=== PATIENT | male | born 1955 | race Caucasian/White ===

== ENCOUNTER → 2020-02-03 13:15 | Outpatient (BNVA) | payer MEDICARE, SELFPAY | PROVIDERS: Family Provider Family Medicine; Referring Provider Family Medicine; Visit Provider Podiatrist Foot & Ankle Surgery | DX: M20.41 Other hammer toe(s) (acquired), right foot (principal); M21.611 Bunion of right foot | CPT/HCPCS: 73630 ==

== ENCOUNTER 2021-02-10 12:00 | Outpatient (CLI) | payer MEDICARE, SELFPAY | END 2021-02-10 12:01 | disposition home or self-care (01) | LOC: SLEEP 02-18 10:04 | PROVIDERS: Family Provider Family Medicine; Visit Provider Internal Medicine | DX: G47.10 Hypersomnia, unspecified (principal); J44.9 Chronic obstructive pulmonary disease, unspecified | CPT/HCPCS: G0399 ==

== ENCOUNTER 2023-11-12 15:31 | Outpatient (CLI) | payer MEDICARE, SELFPAY ==
--- NOTE | 2023-11-12 15:42 | XRR_ITS ---
PROCEDURE INFORMATION: Exam: XR Chest Exam date and time: 11/12/2023 3:57 PM Age: 68 years old Clinical indication: Cough TECHNIQUE: Imaging protocol: Radiologic exam of the chest. Views: 2 views. COMPARISON: CR XR chest 2V* [id number] 01/07/2018 3:25 PM FINDINGS: Lungs: Unremarkable. No consolidation. Pleural spaces: Unremarkable. No pleural effusion. No pneumothorax. Heart/Mediastinum: Unremarkable. No cardiomegaly. Bones/joints: Deformity from healed right rib fracture. XR/XR chest 2V* [id number] IMPRESSION: No acute findings.
== END 2023-11-12 15:32 | disposition home or self-care (01) ==
LOC: RAD 15:34
PROVIDERS: Family Provider Family Medicine; PCP Family Medicine; Visit Provider Family Medicine
DX: R05.9 Cough, unspecified (principal)
CPT/HCPCS: 71046

== ENCOUNTER 2024-11-26 04:41 | Observation (INO) | payer MEDICARE, SELFPAY ==
[2024-11-26] VITALS (42 sets, daily range): BP systolic 115–190; BP diastolic 67–120; PULSE 58–156; RESP 16–26; TEMP 36.7; O2SAT 92–100
--- NOTE | 2024-11-26 05:07 | XRR_ITS ---
PROCEDURE INFORMATION: Exam: XR Chest Exam date and time: 11/26/2024 5:24 AM Age: 69 years old Clinical indication: Shortness of breath; Additional info: Hypertension TECHNIQUE: Imaging protocol: Radiologic exam of the chest. Views: 1 view. COMPARISON: CR XR chest 2V* [id number] 11/12/2023 3:57 PM FINDINGS: Lungs: Unremarkable. No consolidation. Pleural spaces: Unremarkable. No pleural effusion. No pneumothorax. Heart/Mediastinum: Unremarkable. No cardiomegaly. Diaphragm: Minimal blunting of the left CP angle, a tiny effusion may be present. Bones/joints: Unremarkable. XR/XR chest 1V portable [id number] IMPRESSION: No acute abnormality.
--- NOTE | 2024-11-26 05:08 | ED_ITS ---
Documented by User: Derrell Hernandez DO 11/26/24 18:20 HPI - Weakness 2 General: Chief complaint: Weakness Stated complaint: Bleching\Weak Time Seen by Provider: 11/26/24 04:58 Source: family Mode of arrival: other (Private vehicle) Limitations: altered mental status History of Present Illness: Patient arrived via private vehicle with with complaints of weakness and burping. Patient does have dementia and is unable to provide any detailed history. says that he was burping all night long and finally set up at the end of the bed and said he just feels bad and wanted to go to the hospital so she brought him over here for further evaluation. Review of Systems 2 General: Reports: ROS unobtainable due to mental status PFSH ED 2 PFSH: Medical History Type 2 diabetes mellitus GERD (gastroesophageal reflux disease) Social History Smoking and tobacco/nicotine status: former use of tobacco/nicotine Alcohol intake: former Substance/Drug Use: never Current occupational status: retired Physical Exam 2 Const: COMMON NORMALS: no acute distress, average body habitus, healthy appearing, alert and well nourished HENMT: COMMON NORMALS: normocephalic, atraumatic, hearing grossly normal bilaterally, external ears normal, Normal external nose present and moist oral mucous membranes HEAD & SCALP: normocephalic and atraumatic NOSE: Normal external nose present EXTERNAL EAR: Yes external ears normal Eye: COMMON NORMALS: Equal, round and reactive pupils present, EOMs intact bilaterally, conjunctivae normal and no scleral icterus CONJUNCTIVA: Yes conjunctivae normal PUPIL: Yes Equal, round and reactive pupils present Neck/C-Spine: COMMON NORMALS: no JVD Chest: COMMONS NORMALS: normal inspection of the chest and normal palpation of entire chest wall Resp: COMMON NORMALS: normal respiratory effort, No retractions, No use of accessory muscles and clear to auscultation bilaterally AUSCULTATION: clear to auscultation bilaterally Cardio: COMMON NORMALS: no JVD, regular rate, regular rhythm, S1 normal heart sound present, S2 normal heart sound present, No gallops present (Cardio), No clicks present (Cardio), No murmurs present (Cardio) and No rub (Cardio) R ATE: regular rate RHYTHM: regular rhythm HEART SOUNDS: S1 normal heart sound present and S2 normal heart sound present GI: COMMON NORMALS: Normal to inspection, nondistended, normoactive bowel sounds present, Soft to palpation, non-tender, No hepatosplenomegaly present and no masses PALPATION: Yes Soft to palpation and Yes No hepatosplenomegaly present Neuro: SENSORIUM/ORIENTATION: Yes alert Course 2 Vital Signs: Vital signs: Vital Signs Temperature 98.0 F 11/29/24 16:41 Pulse Rate 60 11/29/24 16:41 Respiratory Rate 14 11/29/24 16:41 Blood Pressure 142/84 11/29/24 16:41 Pulse Oximetry 96 11/29/24 16:41 Oxygen Delivery Me thod Room Air 11/29/24 11:57 MDM - Weakness Medical Decision Making Care transferred over Dr. Jay at shift change Medical Records I reviewed the patient's medical records. Lab Data I reviewed the patient's lab results. 11/29/24 05:07 11/29/24 05:07 Radiology Impressions Chest X-Ray 11/26/24 05:07 IMPRESSION: No acute abnormality. Abdomen/Pelvis CT 11/26/24 09:18 IMPRESSION: 1. 3 mm bladder stone 2. Intraluminal bladder air may signify UTI 3. Prostate enlargement 4. Constipation 5. Emphysematous changes involving both lung bases 6. Hiatal hernia Head MRI 11/27/24 10:23 IMPRESSION: 1. Normal diffusion imaging. No acute infarct. 2. Study terminated early due to patient agitation. 3. Moderate atrophy. Small vessel disease is more difficult to quantify due to motion. 4. No ventriculomegaly. 5. Mild bilateral hippocampal atrophy. Laboratory Results WBC 9.15 10^3/uL (3.29-11.43) 11/26/24 06:32 RBC 5.12 10^6/uL (3.85-5.65) 11/26/24 06:32 Hgb 14.90 g/dL (11.27-16.99) 11/26/24 06:32 Hct 46.0 % (37-53) 11/26/24 06:32 MCV 89.8 fl (82-101) 11/26/24 06:32 MCH 29.1 pg (27-33) 11/26/24 06:32 MCHC 32.4 g/dL (30-55) 11/26/24 06:32 RDW 14.1 % (12.1-15.1) 11/26/24 06:32 Plt Count 219 10^3/cmm (157-399) 11/26/24 06:32 MPV 9.7 fL (7.4-10.4) 11/26/24 06:32 Neut % (Auto) 66.3 % 11/26/24 06:32 Lymph % (Auto) 21.9 % 11/26/24 06:32 Calvert % (Auto) 8.4 % 11/26/24 06:32 Eos % (Auto) 2.3 % 11/26/24 06:32 Baso % (Auto) 0.8 % 11/26/24 06:32 Neut # (Auto) 6.07 10^3/uL (1.8-7.7) 11/26/24 06:32 Lymph # (Auto) 2.0 10^3/uL (0.8-4.8) 11/26/24 06:32 [place]vert # (Auto) 0.8 10^3/uL (0.2-0.9) 11/26/24 06:32 Eos # (Auto) 0.2 10^3/uL (0.0-0.8) 11/26/24 06:32 Baso # (Auto) 0.1 10^3/uL (0.0-0.1) 11/26/24 06:32 Nucleated RBC % (auto) 0 % 11/26/24 06:32 Nucleated RBCs # 0.0 /100WBC 11/26/24 06:32 Sodium 141 mmol/L (136-145) 11/26/24 06:32 Potassium 4.0 mmol/L (3.5-5.1) 11/26/24 06:32 Chloride 106 mmol/L (98-107) 11/26/24 06:32 Carbon Dioxide 24 mmol/L (22-29) 11/26/24 06:32 Anion Gap 15.0 (5-19) 11/26/24 06:32 BUN 24 mg/dL (8-23) H 11/26/24 06:32 Creatinine 0.9 mg/dL (0.7-1.2) 11/26/24 06:32 GFR Calculation Not Reportable 11/26/24 06:32 Glucose 140 mg/dL (65-115) H 11/26/24 06:32 Calculated Osmolality 298 mOsm/kg (285-295) H 11/26/24 06:32 Calcium 9.6 mg/dL (8.5-10.5) 11/26/24 06:32 Total Bilirubin 0.4 mg/dL (0.15-1.2) 11/26/24 06:32 AST 10 U/L (0-40) 11/26/24 06:32 ALT 13 U/L (0-41) 11/26/24 06:32 Alkaline Phosphatase 79 U/L (40-130) 11/26/24 06:32 Troponin T Baseline 12 ng/L (0-15) 11/26/24 06:32 Troponin T 120 Minute 12.76 ng/L (0-15) 11/26/24 10:05 Delta Troponin T 0.76 ABS# (0-10) 11/26/24 10:05 Troponin T Hi Sens 6Hr 14.65 ng/L (0-15) 11/26/24 12:31 Troponin T Hi Sens 6Hr Delta 2.65 ng/L (0-12) 11/26/24 12:31 Total Protein 6.3 g/dL (6.6-8.7) L 11/26/24 06:32 Albumin 4.0 g/dL (3.5-5.2) 11/26/24 06:32 Globulin 2.3 g/dL (1.3-4.6) 11/26/24 06:32 Vitamin B12 269 pg/mL (232-1245) 11/26/24 12:31 Procalcitonin 0.06 ng/mL (0-0.5) 11/26/24 10:05 TSH 1.75 uIU/mL (0.27-4.20) 11/26/24 10:05 Urine Color Yellow (Yellow) 11/26/24 07:26 Urine Appearance Cloudy (CLEAR) A 11/26/24 07:26 Urine pH 5.0 (5-7) 11/26/24 07:26 Ur Specific [place] 1.040 (1.005-1.030) H 11/26/24 07:26 Urine Protein Negative (Negative) 11/26/24 07:26 Urine Glucose (UA) 3+ (Normal) H 11/26/24 07:26 Urine Ketones Trace (Negative) 11/26/24 07:26 Urine Blood 2+ (Negative) A 11/26/24 07:26 Urine Nitrate Negative (Negative) 11/26/24 07:26 Urine Bilirubin Negative (Negative) 11/26/24 07:26 Urine Urobilinogen 0.2 mg/dL (Negative) 11/26/24 07:26 Ur Leukocyte Esterase Negative (Negative) 11/26/24 07:26 Urine RBC 25-40 /hpf (0-2) H 11/26/24 07:26 Urine WBC 5-10 /hpf (0-5) H 11/26/24 07:26 Ur Squamous Epith Cells 0-4 /hpf (0-5) H 11/26/24 07:26 Amorphous Sediment Not Reportable 11/26/24 07:26 Urine Bacteria 4+ /hpf (NONE) H 11/26/24 07:26 Hyaline Casts 0-4 /lpf H 11/26/24 07:26 Urine Yeast 2+ /hpf H 11/26/24 07:26 All radiology interpretation(s) finalized by discharge Discharge Plan Discharge Patient Disposition: Admitted As Inpatient Admit Provider: Destinee Romero Clinical Impression: Cystitis, Acute urinary retention, Dementia, Behavioral problem Condition: Stable Discharge Diet: Diabetic Discharge Activity: Resume usual activity Sign Out Sign Out Data: Patient Sign Out occurred on 11/26/24 at 06:18. Patient's care was discussed, and care was transferred from Derrell Hernandez DO to Misael Jay DO. Coding Level of Care Code ED Loan Broker for Chg Fwd Related Data Home Medications Medication Instructions Recorded Confirmed empagliflozin 10 mg tablet 20 mg PO QAM 11/26/24 11/26/24 (Jardiance) famotidine 20 mg tablet 20 mg PO QAM 11/26/24 11/26/24 lorazepam 0.5 mg tablet 0.5 mg PO Q8H PRN agitation, panic 11/26/24 11/26/24 attacks, withdrawal medroxyprogesterone 5 mg tablet 5 mg PO BID 11/26/24 11/26/24 melatonin 10 mg tablet 10 mg PO QPM 11/26/24 11/26/24 metformin 500 mg tablet,extended 500 mg PO QAM 11/26/24 11/26/24 release 24 hr nicotine 21 mg/24 hr daily 1 patch transdermal DAILY 11/26/24 11/26/24 transdermal patch quetiapine 25 mg tablet 25 mg PO BEDTIME 11/26/24 11/26/24 semaglutide 7 mg tablet (Rybelsus) 7 mg PO QAM 11/26/24 11/26/24 terazosin 10 mg capsule 10 mg PO QPM 11/26/24 11/26/24 Previous Rx's Medication Instructions Recorded fluconazole 100 mg tablet 100 mg PO DAILY 5 days #5 tabs 11/29/24 olanzapine 5 mg tablet 5 mg PO BID #60 tabs 11/29/24 valproic acid (as sodium salt) 250 250 mg (5 mL) PO QID 30 days #600 11/29/24 mg/5 mL (5 mL) oral solution mL cephalexin 500 mg capsule 500 mg PO BID 5 days #10 caps 12/02/24 Allergies Allergy/AdvReac Type Severity Reaction Status Date / Time benzocaine Allergy ALGY-Bliste Verified 12/02/24 19:52 r Documented by User: Misael Jay DO 12/03/24 09:13 HPI - Weakness 2 General: Chief complaint: Weakness Stated complaint: Bleching\Weak Time Seen by Provider: 11/26/24 04:58 PFSH ED 2 PFSH: Medical History Type 2 diabetes mellitus GERD (gastroesophageal reflux disease) Social History Smoking and tobacco/nicotine status: former use of tobacco/nicotine Alcohol intake: former Substance/Drug Use: never Current occupational status: retired Course 2 Vital Signs: Vital signs: Vital Signs Temperature 98.0 F 11/29/24 16:41 Pulse Rate 60 11/29/24 16:41 Respiratory Rate 14 11/29/24 16:41 Blood Pressure 142/84 11/29/24 16:41 Pulse Oximetry 96 11/29/24 16:41 Oxygen Delivery Me thod Room Air 11/29/24 11:57 MDM - Weakness Medical Decision Making Care transferred over Dr. Jay at shift change Care assumed at change of shift. Patient is urinary retention dementia cystitis. These medical issues need to be addressed will consult psychiatry while on the medical floor. Potentially will need transfer to geriatric psych once medical issues are resolved. Lab Data 11/29/24 05:07 11/29/24 05:07 Radiology Impressions Chest X-Ray 11/26/24 05:07 IMPRESSION: No acute abnormality. Abdomen/Pelvis CT 11/26/24 09:18 IMPRESSION: 1. 3 mm bladder stone 2. Intraluminal bladder air may signify UTI 3. Prostate enlargement 4. Constipation 5. Emphysematous changes involving both lung bases 6. Hiatal hernia Head MRI 11/27/24 10:23 IMPRESSION: 1. Normal diffusion imaging. No acute infarct. 2. Study terminated early due to patient agitation. 3. Moderate atrophy. Small vessel disease is more difficult to quantify due to motion. 4. No ventriculomegaly. 5. Mild bilateral hippocampal atrophy. Laboratory Results WBC 9.15 10^3/uL (3.29-11.43) 11/26/24 06:32 RBC 5.12 10^6/uL (3.85-5.65) 11/26/24 06:32 Hgb 14.90 g/dL (11.27-16.99) 11/26/24 06:32 Hct 46.0 % (37-53) 11/26/24 06:32 MCV 89.8 fl (82-101) 11/26/24 06:32 MCH 29.1 pg (27-33) 11/26/24 06:32 MCHC 32.4 g/dL (30-55) 11/26/24 06:32 RDW 14.1 % (12.1-15.1) 11/26/24 06:32 Plt Count 219 10^3/cmm (157-399) 11/26/24 06:32 MPV 9.7 fL (7.4-10.4) 11/26/24 06:32 Neut % (Auto) 66.3 % 11/26/24 06:32 Lymph % (Auto) 21.9 % 11/26/24 06:32 Calvert % (Auto) 8.4 % 11/26/24 06:32 Eos % (Auto) 2.3 % 11/26/24 06:32 Baso % (Auto) 0.8 % 11/26/24 06:32 Neut # (Auto) 6.07 10^3/uL (1.8-7.7) 11/26/24 06:32 Lymph # (Auto) 2.0 10^3/uL (0.8-4.8) 11/26/24 06:32 [place]vert # (Auto) 0.8 10^3/uL (0.2-0.9) 11/26/24 06:32 Eos # (Auto) 0.2 10^3/uL (0.0-0.8) 11/26/24 06:32 Baso # (Auto) 0.1 10^3/uL (0.0-0.1) 11/26/24 06:32 Nucleated RBC % (auto) 0 % 11/26/24 06:32 Nucleated RBCs # 0.0 /100WBC 11/26/24 06:32 Sodium 141 mmol/L (136-145) 11/26/24 06:32 Potassium 4.0 mmol/L (3.5-5.1) 11/26/24 06:32 Chloride 106 mmol/L (98-107) 11/26/24 06:32 Carbon Dioxide 24 mmol/L (22-29) 11/26/24 06:32 Anion Gap 15.0 (5-19) 11/26/24 06:32 BUN 24 mg/dL (8-23) H 11/26/24 06:32 Creatinine 0.9 mg/dL (0.7-1.2) 11/26/24 06:32 GFR Calculation Not Reportable 11/26/24 06:32 Glucose 140 mg/dL (65-115) H 11/26/24 06:32 Calculated Osmolality 298 mOsm/kg (285-295) H 11/26/24 06:32 Calcium 9.6 mg/dL (8.5-10.5) 11/26/24 06:32 Total Bilirubin 0.4 mg/dL (0.15-1.2) 11/26/24 06:32 AST 10 U/L (0-40) 11/26/24 06:32 ALT 13 U/L (0-41) 11/26/24 06:32 Alkaline Phosphatase 79 U/L (40-130) 11/26/24 06:32 Troponin T Baseline 12 ng/L (0-15) 11/26/24 06:32 Troponin T 120 Minute 12.76 ng/L (0-15) 11/26/24 10:05 Delta Troponin T 0.76 ABS# (0-10) 11/26/24 10:05 Troponin T Hi Sens 6Hr 14.65 ng/L (0-15) 11/26/24 12:31 Troponin T Hi Sens 6Hr Delta 2.65 ng/L (0-12) 11/26/24 12:31 Total Protein 6.3 g/dL (6.6-8.7) L 11/26/24 06:32 Albumin 4.0 g/dL (3.5-5.2) 11/26/24 06:32 Globulin 2.3 g/dL (1.3-4.6) 11/26/24 06:32 Vitamin B12 269 pg/mL (232-1245) 11/26/24 12:31 Procalcitonin 0.06 ng/mL (0-0.5) 11/26/24 10:05 TSH 1.75 uIU/mL (0.27-4.20) 11/26/24 10:05 Urine Color Yellow (Yellow) 11/26/24 07:26 Urine Appearance Cloudy (CLEAR) A 11/26/24 07:26 Urine pH 5.0 (5-7) 11/26/24 07:26 Ur Specific [place] 1.040 (1.005-1.030) H 11/26/24 07:26 Urine Protein Negative (Negative) 11/26/24 07:26 Urine Glucose (UA) 3+ (Normal) H 11/26/24 07:26 Urine Ketones Trace (Negative) 11/26/24 07:26 Urine Blood 2+ (Negative) A 11/26/24 07:26 Urine Nitrate Negative (Negative) 11/26/24 07:26 Urine Bilirubin Negative (Negative) 11/26/24 07:26 Urine Urobilinogen 0.2 mg/dL (Negative) 11/26/24 07:26 Ur Leukocyte Esterase Negative (Negative) 11/26/24 07:26 Urine RBC 25-40 /hpf (0-2) H 11/26/24 07:26 Urine WBC 5-10 /hpf (0-5) H 11/26/24 07:26 Ur Squamous Epith Cells 0-4 /hpf (0-5) H 11/26/24 07:26 Amorphous Sediment Not Reportable 11/26/24 07:26 Urine Bacteria 4+ /hpf (NONE) H 11/26/24 07:26 Hyaline Casts 0-4 /lpf H 11/26/24 07:26 Urine Yeast 2+ /hpf H 11/26/24 07:26 Discharge Plan Discharge Patient Disposition: Admitted As Inpatient Admit Provider: Destinee Romero Clinical Impression: Cystitis, Acute urinary retention, Dementia, Behavioral problem Condition: Stable Discharge Diet: Diabetic Discharge Activity: Resume usual activity Sign Out Sign Out Data: Patient Sign Out occurred on 11/26/24 at 06:18. Patient's care was discussed, and care was transferred from Derrell Hernandez DO to Misael Jay DO. Coding Level of Care Code ED Loan Broker for Chg Fwd Related Data Home Medications Medication Instructions Recorded Confirmed empagliflozin 10 mg tablet 20 mg PO QAM 11/26/24 11/26/24 (Jardiance) famotidine 20 mg tablet 20 mg PO QAM 11/26/24 11/26/24 lorazepam 0.5 mg tablet 0.5 mg PO Q8H PRN agitation, panic 11/26/24 11/26/24 attacks, withdrawal medroxyprogesterone 5 mg tablet 5 mg PO BID 11/26/24 11/26/24 melatonin 10 mg tablet 10 mg PO QPM 11/26/24 11/26/24 metformin 500 mg tablet,extended 500 mg PO QAM 11/26/24 11/26/24 release 24 hr nicotine 21 mg/24 hr daily 1 patch transdermal DAILY 11/26/24 11/26/24 transdermal patch quetiapine 25 mg tablet 25 mg PO BEDTIME 11/26/24 11/26/24 semaglutide 7 mg tablet (Rybelsus) 7 mg PO QAM 11/26/24 11/26/24 terazosin 10 mg capsule 10 mg PO QPM 11/26/24 11/26/24 Previous Rx's Medication Instructions Recorded fluconazole 100 mg tablet 100 mg PO DAILY 5 days #5 tabs 11/29/24 olanzapine 5 mg tablet 5 mg PO BID #60 tabs 11/29/24 valproic acid (as sodium salt) 250 250 mg (5 mL) PO QID 30 days #600 11/29/24 mg/5 mL (5 mL) oral solution mL cephalexin 500 mg capsule 500 mg PO BID 5 days #10 caps 12/02/24 Allergies Allergy/AdvReac Type Severity Reaction Status Date / Time benzocaine Allergy AKASH-Brendan Verified 12/02/24 19:52 r
[2024-11-26 06:38] LABS: Basophils # 0.1 10^3/uL (0.0-0.1); Basophils % 0.8 %; Eosinophils # 0.2 10^3/uL (0.0-0.8); Eosinophils % 2.3 %; Lymphocytes % 21.9 %; Mean Corpuscular HGB Conc 32.4 g/dL (30-55); Mean Corpuscular Hemoglobin 29.1 pg (27-33); Mean Corpuscular Volume 89.8 fl (82-101); Mean Platelet Volume 9.7 fL (7.4-10.4); Monocytes # 0.8 10^3/uL (0.2-0.9); Monocytes % 8.4 %; Neutrophils # 6.07 10^3/uL (1.8-7.7); Neutrophils % 66.3 %; Nucleated Red Blood Cells % 0 %; Platelet Count 219 10^3/cmm (157-399); Red Blood Count 5.12 10^6/uL (3.85-5.65); Red Cell Distribution Width 14.1 % (12.1-15.1); White Blood Count 9.15 10^3/uL (3.29-11.43)
[2024-11-26 06:59] LABS: Alanine Aminotransferase 13 U/L (0-41); Alkaline Phosphatase 79 U/L (40-130); Aspartate Amino Transferase 10 U/L (0-40); Blood Urea Nitrogen 24 mg/dL (8-23); Calcium 9.6 mg/dL (8.5-10.5); Carbon Dioxide 24 mmol/L (22-29); Chloride 106 mmol/L (98-107); Creatinine Clr Calc Pharmacy 89.5752; Globulin 2.3 g/dL (1.3-4.6); Glucose 140 mg/dL (65-115); Osmolality Calculated 298 mOsm/kg (285-295); Sodium 141 mmol/L (136-145); Total Bilirubin 0.4 mg/dL (0.15-1.2); Total Protein 6.3 g/dL (6.6-8.7)
[2024-11-26 07:50] LABS: Troponin(5th) Baseline 12 ng/L (0-15)
[2024-11-26] MEDS: ziprasidone 20 mg/mL SDV 5 MG IM ×4 (07:55→16:30)
[2024-11-26 08:07] LABS: Bilirubin Urine Negative (Negative); Blood Urine 2+ (Negative); Glucose Urine UA 3+ (Normal); Ketones Urine Trace (Negative); Leukocyte Esterase Urine Negative (Negative); Nitrate Urine Negative (Negative); Protein Urine Negative (Negative); Urine Appearance Cloudy (CLEAR); Urine Color Yellow (Yellow); Urobilinogen Urine 0.2 mg/dL (Negative)
--- NOTE | 2024-11-26 08:08 | PC.NURSE ---
AT 0750 PATIENT TO NURSES STATION AND STATES PATIENT BECOMING AGITATED, NURSE CARLEE AND PHYSICIAN ELLEN TO ROOM WHERE PATIENT IS FOUND OUT OF BED. PATIENT AGGRESSIVE TOWARDS STAFF AND PHYSICIAN. ASKED TO LEAVE ROOM STAFF HANDLES PATIENTS WITH DEMENTIA AND AGGRESSION FREQUENTLY AND DO NOT WANT HER TO BECOME INJURED. PATIENT BEGAN SWINGING TOWARDS STAFF. PATIENT PLACED BACK IN BED, SECURITY NOTIFIED. PATIENT CONTINUES TO KICK AT STAFF. PHYSICIAN ORDERED 5 MG GEODON AT 0755 TO HELP DEESCALATE PATIENT. PATIENT CONTINUES TO BECOME AGGRESSIVE AND ATTEMPTING TO HIT STAFF MEMBERS. PATIENT ORDERED ANOTHER 5 MG GEODON AT 0805. PATIENT GIVEN 1 SHOT GEODON TO LEFT DELTOID, 2ND SHOT TO RIGHT LEG. AT 0815 PATIENT CONTINUES TO SAY THAT HE CANNOT BREATHE. PHYSICIAN AT BEDSIDE CONTINUES TO HELP PATIENT AND MONITOR. PATIENT CONNECTED TO PULSE OX WHERE HE REMAINS 96% ON RA AND HR 151. AT 0824 STAFF STILL AT BEDSIDE. PATIENT STATES THAT HE CANNOT BREATHE AND CONTINUES TO CALL OUT FOR VAULT MECHANIC BECAUSE I'M NOT HURTING ANYONE, YOU ARE. PATIENT 96% ON RA, AND HR 150. AT 0832 STAFF STILL AT BEDSIDE, ELLEN LEFT THE ROOM, REPLACED BY CR WOODS. PATIENT 96% ON RA AND HR 138. AT 0842 STAFF STILL AT BEDSIDE, HOLDING ARMS AND LEGS. 94% ON RA, HR 126. 1 MG ATIVAN ORDERED, GIVEN TO RIGHT LEG. PATIENT PLACED IN TWO POINT SOFT RESTRAINT AT 0851 PER ELLEN. BOTH WRISTS RESTRAINED.
[2024-11-26 08:10] LABS: Add Urine Microscopic? YES
[2024-11-26 08:29] LABS: UA Manual Slide Review YES; UA Slide Review UA Slide Review Perf
[2024-11-26 08:30] LABS: Add Urine Culture? Yes; Bacteria Urine 4+ /hpf; Hyaline Casts Urine 0-4 /lpf; RBC Urine 25-40 /hpf (0-2); Squamous Epithelial Cell Urine 0-4 /hpf (0-5)
[2024-11-26] MEDS: LORazepam 2 mg/mL INJ 1 mL 1 MG IM ×2 (08:44→09:47)
--- NOTE | 2024-11-26 08:58 | PC.NURSE ---
WASTED 1 MG ATIVAN AND 10 MG GEODON WITH SAE BEJARANO.
--- NOTE | 2024-11-26 09:14 | PC.NURSE ---
came to nurses station and alerted staff that pt was getting agitated and wanted to leave. pt has a hx of dementia w episodes of aggression. when this RN arrived to room, pt was making an attempt to elope, this RN attempted to redirect pt back into bed as the physician arrived the pt made multiple swings at staff as well as kicking staff. pt made multiple attempts to get out of bed and had to be held down by staff until provider ordered soft restraints. restraints applied by staff, extremities are pink and warm after application.
--- NOTE | 2024-11-26 09:17 | PC.NURSE ---
AT 0915 PATIENT CONTINUES TO SWING HANDS AND KICK FEET. PATIENT CONTINUES TO BE IN RESTRAINTS. 1:1 SITTER PRESENT, PATIENT CONNECTED TO VITALS MONITORING.
--- NOTE | 2024-11-26 09:18 | CTR_ITS ---
PROCEDURE INFORMATION: Exam: CT Abdomen And Pelvis Without Contrast Exam date and time: 11/26/2024 1:26 PM Age: 69 years old Clinical indication: Other: UTI; Additional info: Flank pain TECHNIQUE: Imaging protocol: Computed tomography of the abdomen and pelvis without contrast. Radiation optimization: All CT scans at this facility use at least one of these dose optimization techniques: automated exposure control; mA and/or kV adjustment per patient size (includes targeted exams where dose is matched to clinical indication); or iterative reconstruction. COMPARISON: CR (CHEST, ) 11/26/2024 5:24 AM RADIATION DOSE METRICS: Total DLP (mGy-cm): 499.43 FINDINGS: Lungs: Both lung bases demonstrate emphysematous changes. Diaphragm: A hiatal hernia is noted in the lower mediastinum. Liver: Normal. No mass. Gallbladder and biliary ducts: Normal. No calcified stones. No ductal dilation. Pancreas: Normal. No ductal dilation. Spleen: Normal. No splenomegaly. Adrenal glands: Normal. No mass. Kidneys and ureters: Normal. No hydronephrosis. Stomach and bowel: There is a moderate amount of stool noted throughout the colon. No bowel distension. Appendix: No evidence of appendicitis. Intraperitoneal space: Unremarkable. No free air. No significant fluid collection. Vasculature: Unremarkable. No abdominal aortic aneurysm. Lymph nodes: Unremarkable. No enlarged lymph nodes. Urinary bladder: There is a 3 mm stone located in the lumen of the bladder. A tiny air bubble is also noted in the lumen of the bladder. Reproductive: The prostate gland is abnormally enlarged. Bones/joints: Unremarkable. No acute fracture. Soft tissues: Unremarkable. CT/CT kidney stone [id number] IMPRESSION: 1. 3 mm bladder stone 2. Intraluminal bladder air may signify UTI 3. Prostate enlargement 4. Constipation 5. Emphysematous changes involving both lung bases 6. Hiatal hernia
--- NOTE | 2024-11-26 09:25 | ECG_ITS ---
[facility] Test Date: 2024-11-26 Pat Name: Placido Stauffer Department: Room: Gender: Male Metal Fabricator: : 1955 Requested By: Misael Pizarro Order Number: [id number] Lorrie MD: Devyn Buenrostro M.D. Measurements Intervals [place] Rate: 93 P: 73 GA: 176 QRS: 21 QRSD: 102 T: 66 QT: 368 QTc: 458 Interpretive Statements SINUS RHYTHM No previous ECG available for comparison Electronically Signed On 11-27-2024 12:35:15 NAVY MATERIAL INSPECTOR by Devyn Buenrostro M.D. [id number]
--- NOTE | 2024-11-26 09:42 | PC.PHAR ---
provided new updated medication list from [facility].
[2024-11-26 10:29] LABS: Troponin 5 2HR 12.76 ng/L (0-15); Troponin 5 2HR Delta 0.76 ABS# (0-10)
[2024-11-26] MEDS: OLANZapine 10 mg ODT PO (10:41)
[2024-11-26 12:56] LABS: Troponin 5 6HR 14.65 ng/L (0-15); Troponin 5 6HR Delta 2.65 ng/L (0-12)
--- NOTE | 2024-11-26 13:25 | ECG_ITS ---
[facility]: 2024-11-26 Pat Name: Placido Stauffer Department: Room: Gender: Male Globe Tester: : 1955 Requested By: Misael Pizarro Order Number: [id number] Lorrie MD: Devyn Buenrostro M.D. Measurements Intervals [place] Rate: 111 P: 75 [place]: 140 QRS: 37 QRSD: 127 T: 70 QT: 327 QTc: 446 Interpretive Statements SINUS TACHYCARDIA MODERATE INTRAVENTRICULAR CONDUCTION DELAY [110+ ms QRS DURATION] Compared to ECG 11/26/2024 11:29:24 Intraventricular conduction delay now present Sinus rhythm no longer present Electronically Signed On 11-27-2024 12:34:46 ARC WELDING MACHINE OPERATOR by Devyn Buenrostro M.D. [id number]
[2024-11-26] MEDS: cefTRIAXone 1,000 mg SDV 1000 MG IVP (16:41)
--- NOTE | 2024-11-26 16:46 | PC.NURSE ---
came to nurses station to inform this RN that pt was starting to get agitated again. provider ordered medication. meds administered. pt began to kick and attempted to pull out linda. milady harmon obtained mitts for pt to detour him from pulling his linda. more medication administered. then the pt attempted to bite this RN. pt states 'im not hurting anyone, you are!' iv inserted per providers orders and abx were administered. 10mg of geodon wasted with SAE Mccracken.
[2024-11-26 17:50] LABS: Procalcitonin 0.06 ng/mL (0-0.5); Thyroid Stimulating Hormone 1.75 uIU/mL (0.27-4.20)
[2024-11-26 18:45] LABS: Lactic Sepsis W/Reflex 1.4 mmol/L (0.5-2.2)
[2024-11-26] MEDS: sodium chloride 0.9% 1,000 ML 75 ML IV (18:59)
[2024-11-26] MEDS: docusate sodium 100 mg Capsule PO (19:00)
--- NOTE | 2024-11-26 19:03 | P.HP_ITS ---
Providers/Chief Complaint 2 Primary Care Provider: Piedad Steinberg DO Chief Complaint: Belching\Weak History of Present Illness Placido Stauffer is a 69 year old male with history of dementia, has had 2 admissions to neuropsychiatric unit at [facility] for suicidal ideation, his guns have been taken away by the family, brought in by his because they are not able to take care of him patient has been very aggressive, he has tried multiple times to punch his , is requesting [facility] placement and prefers [place]. Patient was retaining urine Armenta catheter was placed which showed significant amount of urine, patient is dehydrated, concentrated urine, as per the patient was belching and asked her to take him to the hospital today. Patient is able to tell me his date of , he is not sure where he is at this point but stating name of the town he lives in. At this point he is verbally redirectable, I have given him grape juice, he only took 3 sips. Workup in the ER revealed normal CBC, he is afebrile hemodynamically stable, UA showed pyuria patient has a bladder stone, proximal enlargement constipation and UTI signs Review of Systems 2 General: Reports: ROS unobtainable due to mental status Medications/Allergies Home Medications Medication Instructions Recorded Confirmed Last Taken Type chlorpromazine 25 mg tablet 25 mg PO TID 11/26/24 11/26/24 11/25/24 History empagliflozin 10 mg tablet 20 mg PO QAM 11/26/24 11/26/24 11/25/24 History (Jardiance) eszopiclone 3 mg tablet 3 mg PO BEDTIME 11/26/24 11/26/24 11/25/24 History famotidine 20 mg tablet 20 mg PO QAM 11/26/24 11/26/24 11/25/24 History lamotrigine 100 mg tablet 50 mg PO TID 11/26/24 11/26/24 Unknown History lorazepam 0.5 mg tablet 0.5 mg PO Q8H PRN agitation, panic 11/26/24 11/26/24 Unknown History attacks, withdrawal medroxyprogesterone 5 mg tablet 5 mg PO BID 11/26/24 11/26/24 11/25/24 History melatonin 10 mg tablet 10 mg PO QPM 11/26/24 11/26/24 11/25/24 History metformin 500 mg tablet,extended 500 mg PO QAM 11/26/24 11/26/24 11/25/24 History release 24 hr nicotine 21 mg/24 hr daily 1 patch transdermal DAILY 11/26/24 11/26/24 Unknown History transdermal patch quetiapine 25 mg tablet 25 mg PO BEDTIME 11/26/24 11/26/24 11/25/24 History semaglutide 7 mg tablet (Rybelsus) 7 mg PO QAM 11/26/24 11/26/24 11/25/24 History terazosin 10 mg capsule 10 mg PO QPM 11/26/24 11/26/24 11/25/24 History Allergies Allergy/AdvReac Type Severity Reaction Status Date / Time benzocaine Allergy AKASH-Colleene Verified 11/26/24 04:54 r PFSH Acute 2 PFSH: Medical History Type 2 diabetes mellitus GERD (gastroesophageal reflux disease) Social History Smoking and tobacco/nicotine status: former use of tobacco/nicotine Alcohol intake: former Substance/Drug Use: never Current occupational status: retired Vitals/I&O/Wt Last Vital Signs Temp 98.0 F 11/26/24 04:49 Pulse 92 11/26/24 18:30 Resp 20 H 11/26/24 08:54 BP 139/86 11/26/24 18:30 Pulse Ox 97 11/26/24 18:30 O2 Del Method Room Air 11/26/24 09:44 11/26/24 11/26/24 11/26/24 06:59 14:59 22:59 Intake Total 0 / 0 Balance 0 / 0 Weight last 48 hrs Weight 76.657 kg Physical Exam 2 Narrative: Patient is oriented to himself, GCS 15 Able to move his extremities Agitated Verbally redirectable Dehydrated Dry mucous membrane Abdomen soft Has mittens Able to tell me his date of at the bedside S1, S2 Currently on room air Armenta catheter showing concentrated urine Data 11/26/24 06:32 11/26/24 06:32 Micro: Microbiology 11/26/24 18:01 Blood Culture - Preliminary Blood SPECIMEN COLLECTED 11/26/24 17:58 Blood Culture - Preliminary Blood SPECIMEN COLLECTED A&P Assessment and plan (1) Behavioral problem: (2) Dementia: Plan Hyperactive delirium with underlying dementia Multiple causes such as dehydration, UTI, constipation As per the wifeGene gets BM every 2 days, he has not gone in 2 days Active UTI continue ceftriaxone Add Dulcolax, lactulose, Senokot Severe dehydration continue IV fluids For agitation would use antipsychotics, will need psychiatrist help to adjust his medications 3 mm bladder stone, no signs of hydronephrosis Monitor kidney function for now Regular diet DVT prophylaxis: Lovenox No signs of meningitis, no sign of CVA Check B12, TSH is normal Attestations 2 Medical Necessity Statement*: Will need [facility] psych placement anticipating more than 2 midnights Diagnoses Behavioral problem R46.89 Dementia F03.90
[2024-11-26] MEDS: heparin 5,000 unit/mL INJ 1 mL 5000 UNIT SUBCUT (19:08)
[2024-11-26] MEDS: lamoTRIgine 100 mg Tablet 50 MG PO (20:21)
[2024-11-26] MEDS: LORazepam 0.5 mg Tablet PO (20:21)
[2024-11-26] MEDS: quetiapine 25 mg Tablet PO (20:21)
[2024-11-26 23:08] LABS: Vitamin B12 269 pg/mL (232-1245)
[2024-11-27] VITALS (95 sets, daily range): BP systolic 90–152; BP diastolic 53–94; PULSE 53–148; RESP 12–27; TEMP 36.2–37.1; O2SAT 84–100
[2024-11-27 05:04] LABS: Basophils # 0.1 10^3/uL (0.0-0.1); Basophils % 0.5 %; Eosinophils % 0.4 %; Hematocrit 46.5 % (37-53); Lymphocytes # 1.7 10^3/uL (0.8-4.8); Lymphocytes % 16.4 %; Mean Corpuscular HGB Conc 32.7 g/dL (30-55); Mean Corpuscular Hemoglobin 28.8 pg (27-33); Mean Corpuscular Volume 88.2 fl (82-101); Mean Platelet Volume 9.6 fL (7.4-10.4); Monocytes # 0.9 10^3/uL (0.2-0.9); Monocytes % 8.5 %; Neutrophils # 7.63 10^3/uL (1.8-7.7); Neutrophils % 73.8 %; Nucleated Red Blood Cells % 0 %; Platelet Count 234 10^3/cmm (157-399); Red Blood Count 5.27 10^6/uL (3.85-5.65); Red Cell Distribution Width 13.7 % (12.1-15.1); White Blood Count 10.33 10^3/uL (3.29-11.43)
[2024-11-27] MEDS: heparin 5,000 unit/mL INJ 1 mL 5000 UNIT SUBCUT ×2 (05:08→17:53)
[2024-11-27] MEDS: OLANZapine 5 mg TABLET PO ×3 (05:08→19:46)
[2024-11-27 05:19] LABS: Alanine Aminotransferase 15 U/L (0-41); Alkaline Phosphatase 91 U/L (40-130); Anion Gap 17.6 (5-19); Aspartate Amino Transferase 18 U/L (0-40); Blood Urea Nitrogen 14 mg/dL (8-23); Calcium 9.7 mg/dL (8.5-10.5); Carbon Dioxide 21 mmol/L (22-29); Chloride 106 mmol/L (98-107); Creatinine Clr Calc Pharmacy 100.7721; Globulin 2.6 g/dL (1.3-4.6); Glucose 121 mg/dL (65-115); Magnesium 1.7 mg/dL (1.7-2.3); Osmolality Calculated 294 mOsm/kg (285-295); Potassium 3.6 mmol/L (3.5-5.1); Sodium 141 mmol/L (136-145); Total Bilirubin 0.9 mg/dL (0.15-1.2); Total Protein 6.6 g/dL (6.6-8.7)
[2024-11-27] MEDS: LORazepam 0.5 mg Tablet PO ×2 (06:31→19:47)
[2024-11-27] MEDS: sodium chloride 0.9% 1,000 ML 75 ML IV ×2 (06:35→21:15)
[2024-11-27 07:22] LABS: Glucose Point of Care 137 mg/dL (70-110)
--- NOTE | 2024-11-27 07:53 | PC.NURSE ---
recieved pt awake confused but redirect and no violent at this time restraints off does have a one to one sitter at bedside ,
[2024-11-27] MEDS: pantoprazole DR 40 mg Tablet PO (08:05)
[2024-11-27] MEDS: docusate sodium 100 mg Capsule PO ×2 (08:05→20:00)
[2024-11-27] MEDS: lamoTRIgine 100 mg Tablet 50 MG PO (08:05)
[2024-11-27] MEDS: haloperidol inj 5 mg/mL INJ 1 mL IM (08:44)
--- NOTE | 2024-11-27 09:08 | PC.RESP ---
unable to get sputum sample at this time
--- NOTE | 2024-11-27 09:17 | PC.OT ---
Patient is very agitated, aggressive and anxious. He is able to report his name but not time or place. He was unable to state his 's name. Both arms are restrained in bed and two nurses are bedside. Patient is not appropriate for therapy at this time. Unless mental status changes, therapy is not appropriate.
--- NOTE | 2024-11-27 09:27 | PC.NURSE ---
pt restless pulling at linda and iv lines placed in medical restrains to prevent pulling out lines sitter remains at bedside
--- NOTE | 2024-11-27 10:23 | MR_ITS ---
WS: [id number] MRI BRAIN WITHOUT CONTRAST HISTORY: ams COMPARISON: None available. TECHNIQUE: Diffusion imaging, multiplanar T1, T2 and FLAIR imaging obtained. Limited study. Patient was very agitated and exam had to be terminated early. No acute infarct. Diffusion imaging is normal. The extent of small vessel ischemic disease is more di fficult to determine due to motion. There is at least mild small vessel disease. Mild hippocampal atr ophy. Moderate symmetric atrophy and volume loss. Remote hemorrhage would be difficult to exclude. No inferior displacement of cerebellar tonsils. As visualized the sella turcica is normal. Dural venous sinuses and [place] demonstrate no abnormality on this unenhanced studies. Paranasal sinuses: Clear. Mastoid air cells: Normal. Calvarium and scalp: Intact. MR/MR head wo con* [id number] IMPRESSION: 1. Normal diffusion imaging. No acute infarct. 2. Study terminated early due to patient agitation. 3. Moderate atrophy. Small vessel disease is more difficult to quantify due to motion. 4. No ventriculomegaly. 5. Mild bilateral hippocampal atrophy.
[2024-11-27] MEDS: valproic acid inj 500 MG in sodium chloride 0.9% 50 ML 55 MG IV (11:19)
[2024-11-27] MEDS: LORazepam 2 mg/mL INJ 1 mL IVP (11:41)
--- NOTE | 2024-11-27 11:46 | PC.NURSE ---
premedicated for mri at this time . at bedside
[2024-11-27] MEDS: fluconazole premix 100 MG in empty flexible container 1 EACH 50 MG IV (12:54)
[2024-11-27 12:58] LABS: Glucose Point of Care 200 mg/dL (70-110)
[2024-11-27] MEDS: insulin lispro 100 unit/1 mL SUBCUT ×2 (12:59→17:53)
--- NOTE | 2024-11-27 13:41 | P.PN_ITS ---
Subjective 2 Subjective: Seen this morning. Laying in bed appearing comfortable at this time. Had a discussion with patient's regarding patient's CODE STATUS. She states he is to be DNR/DNI. He states he has been like this for the last few months. He has also been to [facility] psych 2 times in the recent past. He has never had an MRI because of claustrophobia. Vitals/I&O/Wt Last Vital Signs Temp 98 F 11/27/24 13:00 Pulse 54 L 11/27/24 13:00 Resp 14 11/27/24 13:00 BP 120/71 11/27/24 13:00 Pulse Ox 98 11/27/24 08:00 O2 Del Method Room Air 11/26/24 20:42 11/26/24 11/27/24 11/27/24 22:59 06:59 14:59 Intake Total 870 / 870 55 / 55 Output Total 400 / 400 Balance 470 / 470 55 / 55 Weight last 48 hrs Weight 76.657 kg Weight 76.657 kg Weight 76.657 kg Physical Exam 2 Narrative: Patient is oriented to himself, GCS 15 Laying in bed on medical restraints at this time. Appears to be dehydrated. Tells his he wants to go home. at bedside. Abdomen soft S1, S2 Currently on room air Armenta catheter showing concentrated urine Abdomen soft, lungs clear to auscultation bilaterally Appears slightly agitated Data 11/27/24 04:44 11/27/24 04:44 Micro: Microbiology 11/26/24 07:26 Urine Culture - Preliminary Urine,Clean Catch Yeast species 11/26/24 18:01 Blood Culture - Preliminary Blood SPECIMEN COLLECTED 11/26/24 17:58 Blood Culture - Preliminary Blood SPECIMEN COLLECTED A&P Assessment and plan (1) Behavioral problem: (2) Dementia: Plan Hyperactive delirium with underlying dementia Multiple causes such as dehydration, UTI, constipation As per the wifeGene gets BM every 2 days, he has not gone in 2 days Active UTI continue ceftriaxone Add Dulcolax, lactulose, Senokot Severe dehydration continue IV fluids For agitation would use antipsychotics, will need psychiatrist help to adjust his medications 3 mm bladder stone, no signs of hydronephrosis Monitor kidney function for now Regular diet DVT prophylaxis: Lovenox No signs of meningitis, no sign of CVA Check B12, TSH is normal 11/27/2024 -Order MRI brain to rule out underlying pathology ? Continue ceftriaxone for UTI, await urine culture ? Continue IV fluids for dehydration ? 3 mm bladder stone, to follow-up outpatient with urology after discharge ? I will place on scheduled Zyprexa 5 mg twice daily ? Add valproic acid 500 IV x 1, Depakote 500 mg at bedtime ? Seroquel 25 at bedtime ? Continue Ativan 0.5 every 8 hours as needed ? Hold lamotrigine. ? Discussed with psychiatry. They will see patient in consultation ? Placed on fluconazole for yeast in urine. Await culture. ? Continue Armenta for urinary retention. ? Discussed with at bedside. She also has guardianship. Patient to be DNR/DNI as per . Will change CODE STATUS in chart ? Attestations 2 Medical Necessity Statement*: Will need [facility] placement anticipating more than 2 midnights Diagnoses Behavioral problem R46.89 Dementia F03.90
[2024-11-27] MEDS: cefTRIAXone 1,000 mg SDV 1000 MG IVP (16:25)
[2024-11-27] MEDS: water for injection-sterile 10 ML 1000 ML (16:40)
[2024-11-27 17:50] LABS: Glucose Point of Care 247 mg/dL (70-110)
--- NOTE | 2024-11-27 18:01 | PC.NURSE ---
remains sedated po meds not given at this time
[2024-11-27] MEDS: medroxyprogesterone 2.5 mg Tablet 5 MG PO (20:00)
[2024-11-27 21:03] LABS: Glucose Point of Care 106 mg/dL (70-110)
--- NOTE | 2024-11-27 23:08 | PC.NURSE ---
Patient awake. Patient refusing to take oral meds. Patient did drink 1/3 container of vanilla ensure.
[2024-11-28] VITALS (25 sets, daily range): BP systolic 90–169; BP diastolic 46–130; PULSE 45–102; RESP 12–27; TEMP 36.1–36.5; O2SAT 94–98
[2024-11-28] MEDS: chlorPROMazine 25 mg Tablet PO ×4 (01:29→20:30)
[2024-11-28] MEDS: quetiapine 25 mg Tablet PO ×2 (01:30→20:30)
--- NOTE | 2024-11-28 01:30 | PC.NURSE ---
Patient awake. He is smiling and says he is willing to take medicine. Patient given evening dose of thorazine and seraquel. Patient refused depakote. Said pill is too big.
[2024-11-28 04:53] LABS: Basophils # 0.1 10^3/uL (0.0-0.1); Basophils % 0.7 %; Eosinophils # 0.1 10^3/uL (0.0-0.8); Hematocrit 41.3 % (37-53); Lymphocytes % 29.2 %; Mean Corpuscular HGB Conc 32.9 g/dL (30-55); Mean Corpuscular Hemoglobin 29.1 pg (27-33); Mean Corpuscular Volume 88.4 fl (82-101); Mean Platelet Volume 9.6 fL (7.4-10.4); Monocytes # 0.8 10^3/uL (0.2-0.9); Monocytes % 11.2 %; Neutrophils # 3.97 10^3/uL (1.8-7.7); Neutrophils % 57.6 %; Nucleated Red Blood Cells % 0 %; Platelet Count 219 10^3/cmm (157-399); Red Blood Count 4.67 10^6/uL (3.85-5.65); Red Cell Distribution Width 14.1 % (12.1-15.1); White Blood Count 6.89 10^3/uL (3.29-11.43)
[2024-11-28 05:23] LABS: Anion Gap 15.9 (5-19); Blood Urea Nitrogen 13 mg/dL (8-23); Calcium 9.5 mg/dL (8.5-10.5); Carbon Dioxide 21 mmol/L (22-29); Chloride 109 mmol/L (98-107); Creatinine Clr Calc Pharmacy 100.7721; Glucose 94 mg/dL (65-115); Magnesium 1.8 mg/dL (1.7-2.3); Osmolality Calculated 294 mOsm/kg (285-295); Potassium 3.9 mmol/L (3.5-5.1); Sodium 142 mmol/L (136-145)
[2024-11-28] MEDS: heparin 5,000 unit/mL INJ 1 mL 5000 UNIT SUBCUT ×2 (06:46→17:02)
[2024-11-28 07:40] LABS: Glucose Point of Care 81 mg/dL (70-110)
[2024-11-28] MEDS: OLANZapine 5 mg TABLET PO ×2 (08:22→17:02)
[2024-11-28] MEDS: nicotine 21 mg Patch 1 PATCH TRANSDERMA (08:22)
[2024-11-28] MEDS: pantoprazole DR 40 mg Tablet PO (08:22)
[2024-11-28] MEDS: docusate sodium 100 mg Capsule PO ×2 (08:22→17:02)
[2024-11-28] MEDS: medroxyprogesterone 2.5 mg Tablet 5 MG PO ×2 (08:56→17:04)
[2024-11-28] MEDS: sodium chloride 0.9% 1,000 ML 75 ML IV ×2 (08:57→22:30)
[2024-11-28] MEDS: LORazepam 0.5 mg Tablet PO (12:23)
[2024-11-28] MEDS: valproic acid inj 250 MG in sodium chloride 0.9% 50 ML 55 MG IV (13:14)
[2024-11-28] MEDS: fluconazole premix 100 MG in empty flexible container 1 EACH 50 MG IV (13:14)
--- NOTE | 2024-11-28 14:00 | P.PN_ITS ---
Vitals/I&O/Wt Last Vital Signs Temp 97.7 F 11/28/24 08:00 Pulse 84 11/28/24 13:00 Resp 20 H 11/28/24 13:00 BP 160/86 11/28/24 13:00 Pulse Ox 98 11/28/24 08:00 O2 Del Method Room Air 11/26/24 20:42 11/27/24 11/28/24 11/28/24 22:59 06:59 14:59 Intake Total 1010 / 1265 360 / 1625 877.5 / 877.5 Output Total 650 / 650 850 / 1500 Balance 360 / 615 -490 / 125 877.5 / 877.5 Weight last 48 hrs Weight 75 kg Weight 76.657 kg Weight 76.657 kg Physical Exam 2 Narrative: Patient is oriented to himself, GCS 15 Laying in bed comfortable, at bedside, sitter at bedside Abdomen soft S1, S2 Currently on room air Armenta catheter draining clear yellow urine. Abdomen soft, lungs clear to auscultation bilaterally Appears slightly agitated Data 11/28/24 04:24 11/28/24 04:24 Micro: Microbiology 11/26/24 17:58 Blood Culture - Preliminary Blood NEGATIVE TO DATE 11/26/24 18:01 Blood Culture - Preliminary Blood NEGATIVE TO DATE 11/26/24 07:26 Urine Culture - Preliminary Urine,Clean Catch Yeast species A&P Assessment and plan (1) Behavioral problem: (2) Dementia: Plan Hyperactive delirium with underlying dementia Multiple causes such as dehydration, UTI, constipation As per the wifeGene gets BM every 2 days, he has not gone in 2 days Active UTI continue ceftriaxone Add Dulcolax, lactulose, Senokot Severe dehydration continue IV fluids For agitation would use antipsychotics, will need psychiatrist help to adjust his medications 3 mm bladder stone, no signs of hydronephrosis Monitor kidney function for now Regular diet DVT prophylaxis: Lovenox No signs of meningitis, no sign of CVA Check B12, TSH is normal 11/27/2024 -Order MRI brain to rule out underlying pathology ? Continue ceftriaxone for UTI, await urine culture ? Continue IV fluids for dehydration ? 3 mm bladder stone, to follow-up outpatient with urology after discharge ? I will place on scheduled Zyprexa 5 mg twice daily ? Add valproic acid 500 IV x 1, Depakote 500 mg at bedtime ? Seroquel 25 at bedtime ? Continue Ativan 0.5 every 8 hours as needed ? Hold lamotrigine. ? Discussed with psychiatry. They will see patient in consultation ? Placed on fluconazole for yeast in urine. Await culture. ? Continue Armenta for urinary retention. ? Discussed with at bedside. She also has guardianship. Patient to be DNR/DNI as per . Will change CODE STATUS in chart ? 11/28/2024 - MRI brain reviewed: 1. Normal diffusion imaging. No acute infarct. 2. Study terminated early due to patient agitation. 3. Moderate atrophy. Small vessel disease is more difficult to quantify due to motion. 4. No ventriculomegaly. 5. Mild bilateral hippocampal atrophy.. - continue on valproic acid IV daily. pt unable to take oral due to tablet size, will switch to liquid - stop lamotrigine - continue fluconazole - continue zyprexa bid daily - continue ceftriaxone 1 mg daily - continue medroxyprogesterone 5 mg bid - plan for dc in next 24-48 hours pending improvement. Attestations 2 Medical Necessity Statement*: behaviors are improving, plan for dc in next 24-48 hours Diagnoses Behavioral problem R46.89 Dementia F03.90
[2024-11-28] MEDS: LORazepam 2 mg/mL INJ 1 mL 0.5 MG IVP ×2 (14:22→16:35)
--- NOTE | 2024-11-28 14:34 | PC.NURSE ---
Pt began to get agitated with nursing staff and SHONA and was attempting to get out of bed. Patient kicked SHONA franklin and Dr. Romero was called. PRN medication ordered.
--- NOTE | 2024-11-28 14:48 | PC.NURSE ---
Pt pulled EKG wires off and is refusing to have them put back on.
[2024-11-28] MEDS: cefTRIAXone 1,000 mg SDV 1000 MG IVP (15:28)
--- NOTE | 2024-11-28 15:37 | PC.SOCIAL ---
IMM Update pg 2 of IMM updated and reviewed w/ patients . Copy provided and copy dated, initialed and placed in chart.
--- NOTE | 2024-11-28 16:12 | PC.OT ---
OT evaluation withheld this date per nursing request. Nursing stated that the patient is too agitated, and she administered Ativan little earlier. To attempt OT evaluation on a later date.
[2024-11-28 17:02] LABS: Glucose Point of Care 182 mg/dL (70-110)
[2024-11-28] MEDS: insulin lispro 100 unit/1 mL SUBCUT (17:02)
[2024-11-28] MEDS: valproic acid 250 mg/5 mL UDC PO ×2 (17:02→20:31)
--- NOTE | 2024-11-28 18:12 | PC.NURSE ---
reported this nurse that she took patients wedding band home with her
[2024-11-28 22:33] LABS: Glucose Point of Care 126 mg/dL (70-110)
[2024-11-29] VITALS (8 sets, daily range): BP systolic 100–158; BP diastolic 59–90; PULSE 60–83; RESP 14–31; TEMP 36.7–36.9; O2SAT 94–96
--- NOTE | 2024-11-29 03:59 | PC.NURSE ---
Report called to Solomon on [facility], patient transferred to [facility] 261 at [phone].
[2024-11-29 05:16] LABS: Basophils # 0.1 10^3/uL (0.0-0.1); Basophils % 0.7 %; Eosinophils # 0.1 10^3/uL (0.0-0.8); Eosinophils % 1.1 %; Hematocrit 45.2 % (37-53); Lymphocytes # 1.5 10^3/uL (0.8-4.8); Lymphocytes % 20.7 %; Mean Corpuscular HGB Conc 33.4 g/dL (30-55); Mean Corpuscular Volume 86.8 fl (82-101); Mean Platelet Volume 9.1 fL (7.4-10.4); Monocytes # 0.7 10^3/uL (0.2-0.9); Monocytes % 9.9 %; Neutrophils # 4.87 10^3/uL (1.8-7.7); Neutrophils % 67.3 %; Nucleated Red Blood Cells % 0 %; Platelet Count 232 10^3/cmm (157-399); Red Blood Count 5.21 10^6/uL (3.85-5.65); Red Cell Distribution Width 13.7 % (12.1-15.1); White Blood Count 7.24 10^3/uL (3.29-11.43)
[2024-11-29] MEDS: heparin 5,000 unit/mL INJ 1 mL 5000 UNIT SUBCUT (05:35)
[2024-11-29 05:42] LABS: Anion Gap 13.7 (5-19); Blood Urea Nitrogen 9 mg/dL (8-23); Carbon Dioxide 24 mmol/L (22-29); Chloride 108 mmol/L (98-107); Creatinine Clr Calc Pharmacy 87.6516; Glucose 129 mg/dL (65-115); Magnesium 1.8 mg/dL (1.7-2.3); Osmolality Calculated 294 mOsm/kg (285-295); Potassium 3.7 mmol/L (3.5-5.1); Sodium 142 mmol/L (136-145)
[2024-11-29 06:38] LABS: Glucose Point of Care 139 mg/dL (70-110)
[2024-11-29] MEDS: nicotine 21 mg Patch 1 PATCH TRANSDERMA (11:17)
[2024-11-29] MEDS: chlorPROMazine 25 mg Tablet PO (11:17)
[2024-11-29] MEDS: docusate sodium 100 mg Capsule PO (11:17)
[2024-11-29] MEDS: OLANZapine 5 mg TABLET PO (11:17)
[2024-11-29] MEDS: medroxyprogesterone 2.5 mg Tablet 5 MG PO (11:17)
[2024-11-29] MEDS: pantoprazole DR 40 mg Tablet PO (11:18)
[2024-11-29] MEDS: sodium chloride 0.9% 1,000 ML 75 ML IV (11:37)
[2024-11-29 11:55] LABS: Glucose Point of Care 215 mg/dL (70-110)
[2024-11-29] MEDS: valproic acid 250 mg/5 mL UDC PO (12:47)
[2024-11-29] MEDS: insulin lispro 100 unit/1 mL SUBCUT (12:49)
[2024-11-29] MEDS: fluconazole 100 mg Tablet PO (12:54)
--- NOTE | 2024-11-29 14:38 | PM.DCS ---
Discharge Providers Date of Admission: 11/26/24 16:41 Date of Discharge: November 29, 2024 Attending Provider at Admission: Destinee Romero MD Attending Provider at Discharge: Destinee Romero MD Primary Care Provider: Piedad Steinberg DO Diagnoses at Discharge Discharge Diagnosis (1) Behavioral problem: Status: Acute (2) Dementia: Status: Acute Reason for Visit Reason for Visit: Belching\Weak Hospital Course Hospital Course Patient has a history of dementia and presented with combativeness altered mental status and being belligerent. He was diagnosed with UTI and treated for that during hospitalization. He also had urinary retention for which Armenta catheter was placed. Patient required multiple doses of Ativan, Zyprexa, Geodon. Oral Seroquel was started as well. He was started on IV Depakote and switch to oral at time of discharge. Zyprexa was also added. Lamotrigine chlorpromazine was stopped. Patient was discharged home with as per 's request. She is not interested in setting him to a nursing facility as long as he can be managed at home. He was given urology follow-up at discharge. Physical Exam Narrative: Patient is oriented to himself, GCS 15 Laying in bed comfortable, at bedside, sitter at bedside Abdomen soft S1, S2 Currently on room air Armenta catheter draining clear yellow urine. Abdomen soft, lungs clear to auscultation bilaterally Discharge Data Studies Completed and Pending Completed Studies During Hospitalization Category Date Time Status CT kidney stone [id number] Stat Cat Scan 11/26/24 09:18 Completed XR chest 1V portable [id number] Stat Exams 11/26/24 05:07 Completed MR head wo con* [id number] Urgent MRI 11/27/24 10:23 Completed Pending at discharge Category Date Time Status Blood Culture Routine Lab 11/26/24 18:01 Results Sputum Culture and Gram Stain Stat Lab 11/26/24 17:05 Uncollected Urine Culture Stat Lab 11/26/24 07:26 Results Radiology Impressions Chest X-Ray 11/26/24 05:07 IMPRESSION: No acute abnormality. Abdomen/Pelvis CT 11/26/24 09:18 IMPRESSION: 1. 3 mm bladder stone 2. Intraluminal bladder air may signify UTI 3. Prostate enlargement 4. Constipation 5. Emphysematous changes involving both lung bases 6. Hiatal hernia Head MRI 11/27/24 10:23 IMPRESSION: 1. Normal diffusion imaging. No acute infarct. 2. Study terminated early due to patient agitation. 3. Moderate atrophy. Small vessel disease is more difficult to quantify due to motion. 4. No ventriculomegaly. 5. Mild bilateral hippocampal atrophy. Laboratory Results WBC 7.24 10^3/uL (3.29-11.43) 11/29/24 05:07 RBC 5.21 10^6/uL (3.85-5.65) 11/29/24 05:07 Hgb 15.10 g/dL (11.27-16.99) 11/29/24 05:07 Hct 45.2 % (37-53) 11/29/24 05:07 MCV 86.8 fl (82-101) 11/29/24 05:07 MCH 29.0 pg (27-33) 11/29/24 05:07 MCHC 33.4 g/dL (30-55) 11/29/24 05:07 RDW 13.7 % (12.1-15.1) 11/29/24 05:07 Plt Count 232 10^3/cmm (157-399) 11/29/24 05:07 MPV 9.1 fL (7.4-10.4) 11/29/24 05:07 Neut % (Auto) 67.3 % 11/29/24 05:07 Lymph % (Auto) 20.7 % 11/29/24 05:07 [place] % (Auto) 9.9 % 11/29/24 05:07 Eos % (Auto) 1.1 % 11/29/24 05:07 Baso % (Auto) 0.7 % 11/29/24 05:07 Neut # (Auto) 4.87 10^3/uL (1.8-7.7) 11/29/24 05:07 Lymph # (Auto) 1.5 10^3/uL (0.8-4.8) 11/29/24 05:07 [place] # (Auto) 0.7 10^3/uL (0.2-0.9) 11/29/24 05:07 Eos # (Auto) 0.1 10^3/uL (0.0-0.8) 11/29/24 05:07 Baso # (Auto) 0.1 10^3/uL (0.0-0.1) 11/29/24 05:07 Nucleated RBC % (auto) 0 % 11/29/24 05:07 Nucleated RBCs # 0.0 /100WBC 11/29/24 05:07 Sodium 142 mmol/L (136-145) 11/29/24 05:07 Potassium 3.7 mmol/L (3.5-5.1) 11/29/24 05:07 Chloride 108 mmol/L (98-107) H 11/29/24 05:07 Carbon Dioxide 24 mmol/L (22-29) 11/29/24 05:07 Anion Gap 13.7 (5-19) 11/29/24 05:07 BUN 9 mg/dL (8-23) 11/29/24 05:07 Creatinine 0.7 mg/dL (0.7-1.2) 11/29/24 05:07 GFR Calculation Not Reportable 11/29/24 05:07 Glucose 129 mg/dL (65-115) H 11/29/24 05:07 POC Glucose 215 mg/dL (70-110) H 11/29/24 11:52 Calculated Osmolality 294 mOsm/kg (285-295) 11/29/24 05:07 Lactic Acid 1.4 mmol/L (0.5-2.2) 11/26/24 18:01 Calcium 10.0 mg/dL (8.5-10.5) 11/29/24 05:07 Magnesium 1.8 mg/dL (1.7-2.3) 11/29/24 05:07 Total Bilirubin 0.9 mg/dL (0.15-1.2) 11/27/24 04:44 AST 18 U/L (0-40) 11/27/24 04:44 ALT 15 U/L (0-41) 11/27/24 04:44 Alkaline Phosphatase 91 U/L (40-130) 11/27/24 04:44 Troponin T Baseline 12 ng/L (0-15) 11/26/24 06:32 Troponin T 120 Minute 12.76 ng/L (0-15) 11/26/24 10:05 Delta Troponin T 0.76 ABS# (0-10) 11/26/24 10:05 Troponin T Hi Sens 6Hr 14.65 ng/L (0-15) 11/26/24 12:31 Troponin T Hi Sens 6Hr Delta 2.65 ng/L (0-12) 11/26/24 12:31 Total Protein 6.6 g/dL (6.6-8.7) 11/27/24 04:44 Albumin 4.0 g/dL (3.5-5.2) 11/27/24 04:44 Globulin 2.6 g/dL (1.3-4.6) 11/27/24 04:44 Vitamin B12 269 pg/mL (232-1245) 11/26/24 12:31 Procalcitonin 0.06 ng/mL (0-0.5) 11/26/24 10:05 TSH 1.75 uIU/mL (0.27-4.20) 11/26/24 10:05 Urine Color Yellow (Yellow) 11/26/24 07:26 Urine Appearance Cloudy (CLEAR) A 11/26/24 07:26 Urine pH 5.0 (5-7) 11/26/24 07:26 Ur Specific [place] 1.040 (1.005-1.030) H 11/26/24 07:26 Urine Protein Negative (Negative) 11/26/24 07:26 Urine Glucose (UA) 3+ (Normal) H 11/26/24 07:26 Urine Ketones Trace (Negative) 11/26/24 07:26 Urine Blood 2+ (Negative) A 11/26/24 07:26 Urine Nitrate Negative (Negative) 11/26/24 07:26 Urine Bilirubin Negative (Negative) 11/26/24 07:26 Urine Urobilinogen 0.2 mg/dL (Negative) 11/26/24 07:26 Ur Leukocyte Esterase Negative (Negative) 11/26/24 07:26 Urine RBC 25-40 /hpf (0-2) H 11/26/24 07:26 Urine WBC 5-10 /hpf (0-5) H 11/26/24 07:26 Ur Squamous Epith Cells 0-4 /hpf (0-5) H 11/26/24 07:26 Amorphous Sediment Not Reportable 11/26/24 07:26 Urine Bacteria 4+ /hpf (NONE) H 11/26/24 07:26 Hyaline Casts 0-4 /lpf H 11/26/24 07:26 Urine Yeast 2+ /hpf H 11/26/24 07:26 Vitals Last Vital Signs Temp 98.0 F 11/29/24 11:57 Pulse 60 11/29/24 11:57 Resp 14 11/29/24 11:57 BP 142/84 11/29/24 11:57 Pulse Ox 96 11/29/24 11:57 O2 Del Method Room Air 11/29/24 11:57 Discharge Plan Discharge Patient Disposition: Home Condition: Stable Prescriptions: New olanzapine 5 mg Tablet 5 mg PO BID Qty: 60 0RF valproic acid (as sodium salt) 250 mg/5 mL (5 mL) Solution 250 mg PO QID 30 Days Qty: 600 0RF Continued quetiapine 25 mg tablet 25 mg PO BEDTIME medroxyprogesterone 5 mg tablet 5 mg PO BID famotidine 20 mg tablet 20 mg PO QAM lorazepam 0.5 mg tablet 0.5 mg PO Q8H PRN (Reason: agitation, panic attacks, withdrawal) nicotine 21 mg/24 hr Patch 24 Hour 1 patch TRANSDERMAL DAILY metformin 500 mg tablet extended release 24 hr 500 mg PO QAM terazosin 10 mg capsule 10 mg PO QPM melatonin 10 mg Tablet 10 mg PO QPM Jardiance 10 mg Tablet 20 mg PO QAM Rybelsus 7 mg Tablet 7 mg PO QAM Discontinued chlorpromazine 25 mg tablet 25 mg PO TID lamotrigine 100 mg tablet 50 mg PO TID eszopiclone 3 mg tablet 3 mg PO BEDTIME No Action cephalexin 500 mg capsule 500 mg PO BID chlorpromazine 25 mg tablet 25 mg PO TID divalproex [Depakote] 125 mg tablet,delayed release (DR/EC) 350 mg PO BID Rx Instructions: TAKE 2 TABLETS BY MOUTH IN THE MORNING AND 2 TABS IN THE EVENING lamotrigine 100 mg tablet 150 mg PO TID eszopiclone 3 mg tablet 3 mg PO QPM nitrofurantoin monohyd/m-cryst [Macrobid] 100 mg capsule 100 mg PO BID 7 Days Qty: 14 0RF Rx Instructions: must administer with a meal/food Discharge Orders: Discharge Order (Routine); Ordered 11/29/24 Ordered By: Destinee Romero Referrals: Alexandro Lynch [Referring] - 7-10 days (Faxed referral their office will call with appointment. ) Vitaly Reyes MD [Physician] - 7-10 days (We have notified your physician's clinic of the need for a follow-up appointment to be scheduled. If you have not heard from them within the next 2 business days, please call them directly. ) Piedad Steinberg, [Primary Care Provider] - 4-7 days (Please call your primary care provider on Sunday to make a follow up appointment. ) Discharge Diet: Diabetic Discharge Activity: Resume usual activity Patient Instructions: Fluconazole (By mouth), Olanzapine (By mouth), Valproic Acid (By mouth), Urinary Tract Infection in Older Adults (DC), Opioid Safety, Pain Management Activity Restrictions/Additional Instructions: Patient had urinary retention for which Armenta catheter will be left in place. Patient to follow-up with urology as an outpatient regarding Armenta catheter removal and further evaluation and management. Discharge Attestations Time Spent in Discharge Care*: greater than 30 min Quality Metrics Clinical Quality Measures [ No reported AMI, CVA or VTE this stay] Coding Level of Care Code Acute Code for Chg Fwd Diagnoses Behavioral problem R46.89 Dementia F03.90
--- NOTE | 2024-11-29 15:30 | PC.NURSE ---
Called [facility] to correct order per Dr. Romero. Discharge Tamiflu to 200mg daily for 7 days.
== END 2024-11-29 16:00 | disposition home or self-care (01) ==
LOC: ER 16:47 → ICU 23:54 → MEDSURG 11-29 14:35 → ICU 12-01 15:16
PROVIDERS: Emergency Medicine; Internal Medicine; Admitting Provider Internal Medicine; Emergency Provider Family Medicine; PCP Family Medicine; Visit Provider Internal Medicine
DX: F03.90 Unspecified dementia, unspecified severity, without behavioral disturbance, psychotic disturbance, mood disturbance, and anxiety (principal); Z66 Do not resuscitate; E86.0 Dehydration; N39.0 Urinary tract infection, site not specified; Z87.891 Personal history of nicotine dependence; K59.00 Constipation, unspecified; E11.9 Type 2 diabetes mellitus without complications; K21.9 Gastro-esophageal reflux disease without esophagitis
CPT/HCPCS: 36415; 36416; 70551; 71045; 74176; 80048; 80053; 81001; 82607; 82962; 83605; 83735; 84145; 84443; 84484; 85025; 87040; 87086; 87106; 93005; 93010; 94664; 96372; 97161; 97165; 97530; 99223; 99232; 99285; G0378; J0696; J1450; J1630; J1644; J1815; J2060; J3486; J3490; J7030; Q0161

== ENCOUNTER 2024-12-02 19:37 | Emergency (ER) | payer MEDICARE, SELFPAY ==
[2024-12-02 19:44] VITALS: BP 141/101; PULSE 90; RESP 18; TEMP 36.7; O2SAT 98
--- NOTE | 2024-12-02 19:44 | XRR_ITS ---
PROCEDURE INFORMATION: Exam: XR Chest Exam date and time: 12/02/2024 7:56 PM Age: 69 years old Clinical indication: Other: Weakness TECHNIQUE: Imaging protocol: Radiologic exam of the chest. Views: 1 view. COMPARISON: CR (CHEST, ) 11/26/2024 5:24 AM FINDINGS: Lungs: Unremarkable. No consolidation. Pleural spaces: Unremarkable. No pleural effusion. No pneumothorax. Heart/Mediastinum: Unremarkable. No cardiomegaly. Bones/joints: There are chronic right-sided rib deformities. XR/XR chest 1V portable [id number] IMPRESSION: As above.
--- NOTE | 2024-12-02 19:44 | CTR_ITS ---
PROCEDURE INFORMATION: Exam: CT Head Without Contrast Exam date and time: 12/02/2024 9:38 PM Age: 69 years old Clinical indication: Altered mental status/memory loss; Additional info: Encephalopathy, altered mental status TECHNIQUE: Imaging protocol: Computed tomography of the head without contrast. Radiation optimization: All CT scans at this facility use at least one of these dose optimization techniques: automated exposure control; mA and/or kV adjustment per patient size (includes targeted exams where dose is matched to clinical indication); or iterative reconstruction. COMPARISON: MR head wo con* [id number] 11/27/2024 12:22 PM RADIATION DOSE METRICS: Total DLP (mGy-cm): 1072.65 FINDINGS: Brain: Age-related brain parenchymal atrophy. Areas of hypoattenuation in the periventricular and subcortical deep white matter likely on the basis of chronic microvascular ischemic changes. No acute intra cranial hemorrhage. No mass effect or midline shift. No definitive CT evidence of acute territorial infarction. Cerebral ventricles: Prominence of the lateral ventricular system likely on the basis of ex vacuo dilatation. Paranasal sinuses: Paranasal sinus mucosal thickening. Mastoid air cells: Visualized mastoid air cells are well aerated. Bones: Intact calvarium. persist. Soft tissues: Unremarkable. CT/CT head wo con* [id number] IMPRESSION: No acute intracranial process. Senescent changes. If there is continued clinical concern for an acute ischemic event then follow up with a brain MRI examination.
--- NOTE | 2024-12-02 19:53 | ED_ITS ---
HPI - Fever 2 General: Chief Complaint: Fever Stated Complaint: FEVER Time Seen by Provider: 12/02/24 19:43 History of Present Illness: 69-year-old man with a history of type 2 diabetes and dementia who was recently admitted with urinary tract infection and encephalopathy and sent home with a [place] catheter. says that he has become progressively more agitated over the last few days and today was extremely agitated and had a fever. No known cough. No new oxygen requirements. He is agitated on presentation. EMS said he slept most of the way here but was initially agitated before they got in the ambulance Related Data Home Medications Medication Instructions Recorded Confirmed empagliflozin 10 mg tablet 20 mg PO QAM 11/26/24 11/26/24 (Jardiance) famotidine 20 mg tablet 20 mg PO QAM 11/26/24 11/26/24 lorazepam 0.5 mg tablet 0.5 mg PO Q8H PRN agitation, panic 11/26/24 11/26/24 attacks, withdrawal medroxyprogesterone 5 mg tablet 5 mg PO BID 11/26/24 11/26/24 melatonin 10 mg tablet 10 mg PO QPM 11/26/24 11/26/24 metformin 500 mg tablet,extended 500 mg PO QAM 11/26/24 11/26/24 release 24 hr nicotine 21 mg/24 hr daily 1 patch transdermal DAILY 11/26/24 11/26/24 transdermal patch quetiapine 25 mg tablet 25 mg PO BEDTIME 11/26/24 11/26/24 semaglutide 7 mg tablet (Rybelsus) 7 mg PO QAM 11/26/24 11/26/24 terazosin 10 mg capsule 10 mg PO QPM 11/26/24 11/26/24 Previous Rx's Medication Instructions Recorded fluconazole 100 mg tablet 100 mg PO DAILY 5 days #5 tabs 11/29/24 olanzapine 5 mg tablet 5 mg PO BID #60 tabs 11/29/24 valproic acid (as sodium salt) 250 250 mg (5 mL) PO QID 30 days #600 11/29/24 mg/5 mL (5 mL) oral solution mL cephalexin 500 mg capsule 500 mg PO BID 5 days #10 caps 12/02/24 Allergies Allergy/AdvReac Type Severity Reaction Status Date / Time benzocaine Allergy ALGY-Bliste Verified 12/02/24 19:52 r Review of Systems 2 General: Reports: ROS unobtainable due to mental status PFSH ED 2 PFSH: Medical History Type 2 diabetes mellitus GERD (gastroesophageal reflux disease) Social History Smoking and tobacco/nicotine status: former use of tobacco/nicotine Alcohol intake: former Substance/Drug Use: never Current occupational status: retired Physical Exam 2 Narrative: EXAM NARRATIVE: General: Alert, no acute distress. Skin: Warm, dry. Head: Normocephalic, atraumatic. Neck: Supple, trachea midline. Eye: Extraocular movements are intact. Ears, nose, mouth and throat: mucosa moist. Cardiovascular: Regular, Normal peripheral perfusion. Respiratory: Lungs are clear to auscultation, respirations are non-labored, breath sounds are equal, Symmetrical chest wall expansion. Gastrointestinal: Soft, Nontender, Non distended, Normal bowel sounds. Musculoskeletal: Normal ROM, no deformity. Neurological: Alert but not oriented, No focal neurological deficit observed. Psychiatric: Patient seems confused/demented. Agitated Course 2 Vital Signs: Vital signs: Vital Signs Temperature 98.1 F 12/02/24 19:44 Pulse Rate 72 12/02/24 21:21 Respiratory Rate 18 12/02/24 21:21 Blood Pressure 144/107 12/02/24 21:21 Pulse Oximetry 98 12/02/24 21:21 Oxygen Delivery Me thod Room Air 12/02/24 19:44 MDM - Fever Medical Decision Making Medical decision making: Differential diagnosis including but not limited to and based on the above HPI, review of systems and physical exam: In this patient with altered mental status: Stroke. Hypoglycemia. Metabolic encephalopathy. Infections such as pneumonia, urinary tract infection, Covid-19, Influenza. Electrolyte abnormalities such as hypernatremia. Renal failure / uremia. Hepatic encephalopathy. Hypoxemia. Hypercapnic respiratory failure. Psychosis. Drug or alcohol intoxication. Medication overdose. Orders placed to evaluate differential diagnosis based on the above differential, HPI and physical exam Lab Review: Laboratory results were reviewed and interpreted by myself the emergency room physician. No leukocytosis. No anemia. No renal failure. Patient does have a slightly high sodium at 146. Urinalysis shows a mild infection but he does have an indwelling Armenta catheter. Is quite concentrated which also indicates that he is dehydrated. Abdominal pain has resolved. Seems maybe he is having some bladder spasms associated with the Armenta catheter. CT head: Senescent changes no acute intracranial process. no intracranial hemorrhage, no evidence of infarct. no evidence of acute fracture.This was reviewed and interpreted by myself the ER physician. Chest x-ray: No acute process. No infiltrate. No pneumothorax. This was reviewed and interpreted by myself the emergency room physician. I also reviewed the radiology report. I reviewed the patient's medical record. Reexamination: Patient is much less agitated than earlier. He has required some medications. Ativan and his home meds. I talked with his at length. The only finding I found is that he is slightly dehydrated may be a slight infection in his Armenta catheter. He says he becomes much more agitated when in the hospital and so we are going to try to let him go home for now. If he worsens she will call the ambulance again. Assessment and plan: Dementia Behavioral issues/agitation Dehydration Hyponatremia UTI ?Rocephin and normal saline bolus. -2 doses of IV Ativan. Home quetiapine and olanzapine. - Discharged home - Discussed findings and plan with patient. Answered any questions. - All laboratory values were reviewed and interpreted personally by myself, the ER physician - All imaging was reviewed and interpreted personally by myself, the ER physician. - Evaluation and treatment of this problem were appropriate in the emergency setting Lab Data 12/02/24 19:30 12/02/24 19:30 Radiology Impressions Chest X-Ray 12/02/24 19:44 IMPRESSION: As above. Head CT 12/02/24 19:44 IMPRESSION: No acute intracranial process. Senescent changes. If there is continued clinical concern for an acute ischemic event then follow up with a brain MRI examination. Laboratory Results WBC 7.97 10^3/uL (3.29-11.43) 12/02/24 19:30 RBC 5.25 10^6/uL (3.85-5.65) 12/02/24 19:30 Hgb 15.30 g/dL (11.27-16.99) 12/02/24 19:30 Hct 46.6 % (37-53) 12/02/24 19:30 MCV 88.8 fl (82-101) 12/02/24 19:30 MCH 29.1 pg (27-33) 12/02/24 19:30 MCHC 32.8 g/dL (30-55) 12/02/24 19:30 RDW 14.4 % (12.1-15.1) 12/02/24 19:30 Plt Count 248 10^3/cmm (157-399) 12/02/24 19:30 MPV 10.0 fL (7.4-10.4) 12/02/24 19:30 Neut % (Auto) 67.2 % 12/02/24 19:30 Lymph % (Auto) 21.3 % 12/02/24 19:30 [place] % (Auto) 9.8 % 12/02/24 19:30 Eos % (Auto) 0.8 % 12/02/24 19: Baso % (Auto) 0.6 % 12/02/24 19:30 Neut # (Auto) 5.36 10^3/uL (1.8-7.7) 12/02/24 19:30 Lymph # (Auto) 1.7 10^3/uL (0.8-4.8) 12/02/24 19:30 [place] # (Auto) 0.8 10^3/uL (0.2-0.9) 12/02/24 19:30 Eos # (Auto) 0.1 10^3/uL (0.0-0.8) 12/02/24 19:30 Baso # (Auto) 0.1 10^3/uL (0.0-0.1) 12/02/24 19: Nucleated RBC % (auto) 0 % 12/02/24 19: Nucleated RBCs # 0.0 /100WBC 12/02/24 19:30 Sodium 146 mmol/L (136-145) H 12/02/24 19:30 Potassium 4.2 mmol/L (3.5-5.1) 12/02/24 19:30 Chloride 106 mmol/L (98-107) 12/02/24 19:30 Carbon Dioxide 28 mmol/L (22-29) 12/02/24 19:30 Anion Gap 16.2 (5-19) 12/02/24 19:30 BUN 22 mg/dL (8-23) 12/02/24 19: Creatinine 0.9 mg/dL (0.7-1.2) 12/02/24 19: GFR Calculation Not Reportable 12/02/24 19: Glucose 199 mg/dL (65-115) H 12/02/24 19:30 Calculated Osmolality 311 mOsm/kg (285-295) H 12/02/24 19: Lactic Acid 1.9 mmol/L (0.5-2.2) 12/02/24: Calcium 10.7 mg/dL (8.5-10.5) H 12/02/24 19: Total Bilirubin 0.5 mg/dL (0.15-1.2) 12/02/24: AST 15 U/L (0-40) 12/02/24: ALT 26 U/L (0-41) 12/02/24: Alkaline Phosphatase 82 U/L (40-130) 12/02/24: C-Reactive Protein 17.8 mg/L (0.0-4.9) H 12/02/24 19: Total Protein 7.1 g/dL (6.6-8.7) 12/02/24 19: Albumin 4.2 g/dL (3.5-5.2) 12/02/24 19: Globulin 2.9 g/dL (1.3-4.6) 12/02/24 19: Urine Color Yellow (Yellow) 12/02/24: Urine Appearance Turbid (CLEAR) A 12/02/24: Urine pH 7.0 (5-7) 12/02/24: Ur Specific [place] 1.036 (1.005-1.030) H 12/02/24: Urine Protein Trace (Negative) A 12/02/24: Urine Glucose (UA) 3+ (Normal) H 12/02/24: Urine Ketones 2+ (Negative) H 12/02/24: Urine Blood 2+ (Negative) A 12/02/24: Urine Nitrate Negative (Negative) 12/02/24: Urine Bilirubin Negative (Negative) 12/02/24: Urine Urobilinogen 1.0 mg/dL (Negative) 01/07/25 21:33 Ur Leukocyte Esterase Negative (Negative) 12/02/24 21:33 Urine RBC 21-50 /hpf (0-2) H 12/02/24 21:33 Urine WBC 6-10 /hpf (0-5) 12/02/24 21:33 Ur Squamous Epith Cells 0-5 /hpf (0-5) 12/02/24 21:33 Amorphous Sediment Not Reportable 12/02/24 21:33 Urine Bacteria Trace /hpf (NONE) 12/02/24 21:33 Hyaline Casts 0.81 /lpf 12/02/24 21:33 All radiology interpretation(s) finalized by discharge Discharge Plan Discharge Patient Disposition: Home Clinical Impression: Dementia, Behavioral problem, Abdominal pain, Dehydration Condition: Stable Prescriptions: New cephalexin 500 mg capsule 500 mg PO BID 5 Days Qty: 10 0RF No Action quetiapine 25 mg tablet 25 mg PO BEDTIME medroxyprogesterone 5 mg tablet 5 mg PO BID famotidine 20 mg tablet 20 mg PO QAM lorazepam 0.5 mg tablet 0.5 mg PO Q8H PRN (Reason: agitation, panic attacks, withdrawal) nicotine 21 mg/24 hr Patch 24 Hour 1 patch TRANSDERMAL DAILY metformin 500 mg tablet extended release 24 hr 500 mg PO QAM terazosin 10 mg capsule 10 mg PO QPM melatonin 10 mg Tablet 10 mg PO QPM Jardiance 10 mg Tablet 20 mg PO QAM Rybelsus 7 mg Tablet 7 mg PO QAM fluconazole 100 mg Tablet 100 mg PO DAILY 5 Days Qty: 5 0RF olanzapine 5 mg Tablet 5 mg PO BID Qty: 60 0RF valproic acid (as sodium salt) 250 mg/5 mL (5 mL) Solution 250 mg PO QID 30 Days Qty: 600 0RF Discharge Orders: Discharge ED (Routine); Ordered 12/02/24 Ordered By: Lara Flor Referrals: Piedad Steinberg DO [Primary Care Provider] - Discharge Diet: Usual diet Discharge Activity: Increase activity as tolerated Patient Instructions: Abdominal Pain (ED), Opioid Safety, Pain Management Activity Restrictions/Additional Instructions: Thank you for choosing [facility] for your healthcare needs today. Please realize this is an emergency room and that we are providing you with a medical screening exam and this may not be complete and all inclusive of all the testing and or work up that you may need to determine your ailment or severity of your illness. You have been screened and evaluated and felt safe for discharge. Health conditions do change or evolve sometimes and as such it is important that you follow up with your Primary Doctor to be re checked, 3-5 days is a general good time frame for follow up. You are always welcome to return to the ED for re assessment if your symptoms are worsening or you have new concerns Coding Level of Care Code ED General Education Instructor for Gustavo Vuong
[2024-12-02 19:56] VITALS: BP 141/101; PULSE 73; RESP 18; O2SAT 96
[2024-12-02] MEDS: LORazepam 2 mg/mL INJ 1 mL 1 MG IVP (19:56)
[2024-12-02 20:01] LABS: Basophils # 0.1 10^3/uL (0.0-0.1); Basophils % 0.6 %; Eosinophils # 0.1 10^3/uL (0.0-0.8); Eosinophils % 0.8 %; Hematocrit 46.6 % (37-53); Lymphocytes # 1.7 10^3/uL (0.8-4.8); Lymphocytes % 21.3 %; Mean Corpuscular HGB Conc 32.8 g/dL (30-55); Mean Corpuscular Hemoglobin 29.1 pg (27-33); Mean Corpuscular Volume 88.8 fl (82-101); Monocytes # 0.8 10^3/uL (0.2-0.9); Monocytes % 9.8 %; Neutrophils # 5.36 10^3/uL (1.8-7.7); Neutrophils % 67.2 %; Nucleated Red Blood Cells % 0 %; Platelet Count 248 10^3/cmm (157-399); Red Blood Count 5.25 10^6/uL (3.85-5.65); Red Cell Distribution Width 14.4 % (12.1-15.1); White Blood Count 7.97 10^3/uL (3.29-11.43)
[2024-12-02 20:18] LABS: Lactic Sepsis W/Reflex 1.9 mmol/L (0.5-2.2)
[2024-12-02 20:20] LABS: Alanine Aminotransferase 26 U/L (0-41); Albumin Level 4.2 g/dL (3.5-5.2); Alkaline Phosphatase 82 U/L (40-130); Anion Gap 16.2 (5-19); Aspartate Amino Transferase 15 U/L (0-40); Blood Urea Nitrogen 22 mg/dL (8-23); C Reactive Protein 17.8 mg/L (0.0-4.9); Calcium 10.7 mg/dL (8.5-10.5); Carbon Dioxide 28 mmol/L (22-29); Chloride 106 mmol/L (98-107); Globulin 2.9 g/dL (1.3-4.6); Glucose 199 mg/dL (65-115); Osmolality Calculated 311 mOsm/kg (285-295); Potassium 4.2 mmol/L (3.5-5.1); Sodium 146 mmol/L (136-145); Total Bilirubin 0.5 mg/dL (0.15-1.2); Total Protein 7.1 g/dL (6.6-8.7)
[2024-12-02 21:21] VITALS: BP 144/107; PULSE 72; RESP 18; O2SAT 98
[2024-12-02] MEDS: sodium chloride 0.9% 1,000 ML 999 ML IV (21:22)
[2024-12-02] MEDS: acetaminophen 500 mg Tablet 1000 MG PO (21:22)
[2024-12-02] MEDS: haloperidol inj 5 mg/mL INJ 1 mL IVP (21:23)
[2024-12-02 21:54] LABS: Bilirubin Urine Negative (Negative); Blood Urine 2+ (Negative); Glucose Urine UA 3+ (Normal); Ketones Urine 2+ (Negative); Leukocyte Esterase Urine Negative (Negative); Nitrate Urine Negative (Negative); Protein Urine Trace (Negative); Urine Appearance Turbid (CLEAR); Urine Color Yellow (Yellow)
[2024-12-02 21:58] LABS: Bacteria Urine Trace /hpf; Hyaline Casts Urine 0.81 /lpf; RBC Urine 21-50 /hpf (0-2); Squamous Epithelial Cell Urine 0-5 /hpf (0-5)
[2024-12-02 22:08] LABS: Specific Gravity, Urine 1.036 (1.005-1.030)
[2024-12-02 22:09] LABS: Add Urine Culture? Yes
[2024-12-02] MEDS: cefTRIAXone 1,000 mg SDV 1000 MG IVP (23:42)
[2024-12-02] MEDS: LORazepam 2 mg/mL oral liquid (mL) 1 MG PO (23:42)
[2024-12-02] MEDS: quetiapine 25 mg Tablet PO (23:43)
[2024-12-02] MEDS: OLANZapine 5 mg ODT PO (23:43)
[2024-12-02 23:46] VITALS: BP 152/79; PULSE 76; RESP 16; O2SAT 98
== END 2024-12-03 00:03 | disposition home or self-care (01) ==
PROVIDERS: Emergency Provider Emergency Medicine; PCP Family Medicine
DX: F03.90 Unspecified dementia, unspecified severity, without behavioral disturbance, psychotic disturbance, mood disturbance, and anxiety (principal); R10.9 Unspecified abdominal pain; E86.0 Dehydration; Z79.84 Long term (current) use of oral hypoglycemic drugs; Z87.891 Personal history of nicotine dependence; E11.9 Type 2 diabetes mellitus without complications
CPT/HCPCS: 36415; 70450; 71045; 80053; 81001; 83605; 85025; 86140; 87040; 87077; 87086; 87186; 96374; 96375; 99285; J0696; J1630; J2060; J7030

== ENCOUNTER 2024-12-08 10:55 | Emergency (ER) | payer MEDICARE, SELFPAY ==
[2024-12-08 10:58] VITALS: BP 125/83; PULSE 108; RESP 14; TEMP 36.6; O2SAT 96
--- NOTE | 2024-12-08 11:06 | ECG_ITS ---
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 Measurements Intervals [place] Rate: 108 P: 69 [place]: 154 QRS: 49 QRSD: 85 T: 73 QT: 322 QTc: 433 Interpretive Statements SINUS TACHYCARDIA MINIMAL ST DEPRESSION [0.025+ mV ST DEPRESSION] ABNORMAL RHYTHM ECG Compared to ECG 11/26/2024 16:43:27 ST (T wave) deviation now present Intraventricular conduction delay no longer present Electronically Signed On 12-09-2024 23:51:34 WALL CRANE OPERATOR by Marino Jessica M.D. [id number]
--- NOTE | 2024-12-08 11:09 | ED_ITS ---
HPI - Recheck/Abnormal Lab/Rx 2 General: Chief Complaint: Recheck/Abnormal Lab/Rx Stated Complaint: bladder infection Time Seen by Provider: 12/08/24 10:56 Source: patient Mode of arrival: ambulatory Limitations: no limitations History of Present Illness: 69-year-old male with a history of advan vasyl dementia he had been seen here recently for urinary retention and had a Linda placed and had a urinary tract infection and had positive culture he was called to come back due to positive urine culture. Patient has had some increased confusion and agitation per family but is at his baseline with the dementia. No fevers blood pressure here is normal Related Data Home Medications Medication Instructions Recorded Confirmed empagliflozin 10 mg tablet 20 mg PO QAM 11/26/24 12/08/24 (Jardiance) famotidine 20 mg tablet 20 mg PO QAM 11/26/24 12/08/24 lorazepam 0.5 mg tablet 0.5 mg PO Q8H PRN agitation, panic 11/26/24 12/08/24 attacks, withdrawal medroxyprogesterone 5 mg tablet 5 mg PO BID 11/26/24 12/08/24 melatonin 10 mg tablet 10 mg PO QPM 11/26/24 12/08/24 metformin 500 mg tablet,extended 500 mg PO QAM 11/26/24 12/08/24 release 24 hr nicotine 21 mg/24 hr daily 1 patch transdermal DAILY 11/26/24 12/08/24 transdermal patch quetiapine 25 mg tablet 25 mg PO BEDTIME 11/26/24 12/08/24 semaglutide 7 mg tablet (Rybelsus) 7 mg PO QAM 11/26/24 12/08/24 terazosin 10 mg capsule 10 mg PO QPM 11/26/24 12/08/24 cephalexin 500 mg capsule 500 mg PO BID 12/08/24 12/08/24 chlorpromazine 25 mg tablet 25 mg PO TID 12/08/24 12/08/24 divalproex 125 mg tablet,delayed 350 mg PO BID 12/08/24 12/08/24 release (Depakote) eszopiclone 3 mg tablet 3 mg PO QPM 12/08/24 12/08/24 lamotrigine 100 mg tablet 150 mg PO TID 12/08/24 12/08/24 Previous Rx's Medication Instructions Recorded olanzapine 5 mg tablet 5 mg PO BID #60 tabs 11/29/24 valproic acid (as sodium salt) 250 250 mg (5 mL) PO QID 30 days #600 11/29/24 mg/5 mL (5 mL) oral solution mL nitrofurantoin 100 mg PO BID 7 days #14 caps 12/08/24 monohydrate/macrocrystals 100 mg capsule (Macrobid) Allergies Allergy/AdvReac Type Severity Reaction Status Date / Time benzocaine Allergy Lo Verified 12/02/24 19:52 r Review of Systems 2 General: Reports: ROS unobtainable due to mental status PFSH ED 2 PFSH: Medical History Type 2 diabetes mellitus GERD (gastroesophageal reflux disease) Social History Smoking and tobacco/nicotine status: former use of tobacco/nicotine Alcohol intake: former Substance/Drug Use: never Current occupational status: retired Physical Exam 2 Const: COMMON NORMALS: negative for patient oriented x3 HENMT: COMMON NORMALS: normocephalic and atraumatic HEAD & SCALP: n ormocephalic and atraumatic Eye: COMMON NORMALS: Equal, round and reactive pupils present and EOMs intact bilaterally PUPIL: Yes Equal, round and reactive pupils present Neck/C-Spine: COMMON NORMALS: full ROM and supple Chest: COMMONS NORMALS: normal inspection of the chest and normal palpation of entire chest wall Resp: COMMON NORMALS: normal respiratory effort, No retractions, No use of accessory muscles and clear to auscultation bilaterally AUSCULTATION: clear to auscultation bilaterally Cardio: COMMON NORMALS: regular rate, regular rhythm and No murmurs present (Cardio) RATE: regular rate RHYTHM: regular rhythm GI: COMMON NORMALS: Normal to inspection, nondistended, normoactive bowel sounds present, Soft to palpation, non-tender and no masses PALPATION: Yes Soft to palpation : OTHER: linda in place Extremity: COMMON NORMALS: normal to inspection and full ROM Neuro: COMMON NORMALS: moves all extremities and no focal motor deficits; negative for patient oriented x3 Psych: COMMON NORMALS: cooperative Skin: COMMON NORMALS: no rashes or lesions noted and no wounds GENERAL SKIN EXAM: no rashes or lesions noted Course 2 Vital Signs: Vital signs: Vital Signs Temperature 97.8 F 12/08/24 10:58 Pulse Rate 119 H 12/08/24 11:13 Respiratory Rate 14 12/08/24 10:58 Blood Pressure 125/83 12/08/24 11:13 Pulse Oximetry 97 12/08/24 11:13 Oxygen Delivery Me thod Room Air 12/08/24 11:13 MDM - Recheck/Abnormal Lab/Rx Medical Decision Making Patient presents here with a UTI we will place him on Macrobid his does want to place him on hospice as well will make a hospice referral. Medical Records I reviewed the patient's medical records. Lab Data I reviewed the patient's lab results. 12/08/24 12:08 12/08/24 12:08 Laboratory Results WBC 12.29 10^3/uL (3.29-11.43) H 12/08/24 12:08 RBC 5.52 10^6/uL (3.85-5.65) 12/08/24 12:08 Hgb 16.30 g/dL (11.27-16.99) 12/08/24 12:08 Hct 49.8 % (37-53) 12/08/24 12:08 MCV 90.2 fl (82-101) 12/08/24 12:08 MCH 29.5 pg (27-33) 12/08/24 12:08 MCHC 32.7 g/dL (30-55) 12/08/24 12:08 RDW 14.1 % (12.1-15.1) 12/08/24 12:08 Plt Count 279 10^3/cmm (157-399) 12/08/24 12:08 MPV 9.7 fL (7.4-10.4) 12/08/24 12:08 Neut % (Auto) 78.2 % 12/08/24 12:08 Lymph % (Auto) 11.1 % 12/08/24 12:08 [place] % (Auto) 9.4 % 12/08/24 12:08 Eos % (Auto) 0.1 % 12/08/24 12:08 Baso % (Auto) 0.5 % 12/08/24 12:08 Neut # (Auto) 9.63 10^3/uL (1.8-7.7) H 12/08/24 12:08 Lymph # (Auto) 1.4 10^3/uL (0.8-4.8) 12/08/24 12:08 [place] # (Auto) 1.2 10^3/uL (0.2-0.9) H 12/08/24 12:08 Eos # (Auto) 0.0 10^3/uL (0.0-0.8) 12/08/24 12:08 Baso # (Auto) 0.1 10^3/uL (0.0-0.1) 12/08/24 12:08 Nucleated RBC % (auto) 0 % 12/08/24 12:08 Nucleated RBCs # 0.0 /100WBC 12/08/24 12:08 Sodium 141 mmol/L (136-145) 12/08/24 12:08 Potassium 4.3 mmol/L (3.5-5.1) 12/08/24 12:08 Chloride 102 mmol/L (98-107) 12/08/24 12:08 Carbon Dioxide 24 mmol/L (22-29) 12/08/24 12:08 Anion Gap 19.3 (5-19) H 12/08/24 12:08 BUN 21 mg/dL (8-23) 12/08/24 12:08 Creatinine 0.7 mg/dL (0.7-1.2) 12/08/24 12:08 GFR Calculation Not Reportable 12/08/24 12:08 Glucose 170 mg/dL (65-115) H 12/08/24 12:08 Calculated Osmolality 299 mOsm/kg (285-295) H 12/08/24 12:08 Calcium 10.6 mg/dL (8.5-10.5) H 12/08/24 12:08 Total Bilirubin 0.5 mg/dL (0.15-1.2) 12/08/24 12:08 AST 12 U/L (0-40) 12/08/24 12:08 ALT 17 U/L (0-41) 12/08/24 12:08 Alkaline Phosphatase 84 U/L (40-130) 12/08/24 12:08 Total Protein 6.7 g/dL (6.6-8.7) 12/08/24 12:08 Albumin 3.8 g/dL (3.5-5.2) 12/08/24 12:08 Globulin 2.9 g/dL (1.3-4.6) 12/08/24 12:08 Urine Color [place] (Yellow) A 12/08/24 11:37 Urine Appearance Cloudy (CLEAR) A 12/08/24 11:37 Urine pH 5.5 (5-7) 12/08/24 11:37 Ur Specific [place] 1.047 (1.005-1.030) H 12/08/24 11:37 Urine Protein 1+ (Negative) A 12/08/24 11:37 Urine Glucose (UA) 3+ (Normal) H 12/08/24 11:37 Urine Ketones 4+ (Negative) 12/08/24 11:37 Urine Blood 3+ (Negative) A 12/08/24 11:37 Urine Nitrate Negative (Negative) 12/08/24 11:37 Urine Bilirubin Negative (Negative) 12/08/24 11:37 Urine Urobilinogen 1.0 mg/dL (Negative) 12/08/24 11:37 Ur Leukocyte Esterase Trace (Negative) A 12/08/24 11:37 Urine RBC >100 /hpf (0-2) H 12/08/24 11:37 Urine WBC 15-25 /hpf (0-5) H 12/08/24 11:37 Ur Squamous Epith Cells 0-4 /hpf (0-5) H 12/08/24 11:37 Amorphous Sediment Not Reportable 12/08/24 11:37 Urine Bacteria 1+ /hpf (NONE) H 12/08/24 11:37 All radiology interpretation(s) finalized by discharge EKG Data EKG 1: I personally reviewed and interpreted this EKG as follows: EKG interpretation date: 12/08/24 EKG interpretation time: 11:01 Interpretation: sinus tach hr [address] elevation qrs 85 qtc 385 Discharge Plan Discharge Patient Disposition: Home Clinical Impression: Acute cystitis Condition: Stable Prescriptions: New nitrofurantoin monohyd/m-cryst [Macrobid] 100 mg capsule 100 mg PO BID 7 Days Qty: 14 0RF Rx Instructions: must administer with a meal/food No Action quetiapine 25 mg tablet 25 mg PO BEDTIME medroxyprogesterone 5 mg tablet 5 mg PO BID famotidine 20 mg tablet 20 mg PO QAM lorazepam 0.5 mg tablet 0.5 mg PO Q8H PRN (Reason: agitation, panic attacks, withdrawal) nicotine 21 mg/24 hr Patch 24 Hour 1 patch TRANSDERMAL DAILY metformin 500 mg tablet extended release 24 hr 500 mg PO QAM terazosin 10 mg capsule 10 mg PO QPM melatonin 10 mg Tablet 10 mg PO QPM Jardiance 10 mg Tablet 20 mg PO QAM Rybelsus 7 mg Tablet 7 mg PO QAM olanzapine 5 mg Tablet 5 mg PO BID Qty: 60 0RF valproic acid (as sodium salt) 250 mg/5 mL (5 mL) Solution 250 mg PO QID 30 Days Qty: 600 0RF cephalexin 500 mg capsule 500 mg PO BID chlorpromazine 25 mg tablet 25 mg PO TID divalproex [Depakote] 125 mg tablet,delayed release (DR/EC) 350 mg PO BID Rx Instructions: TAKE 2 TABLETS BY MOUTH IN THE MORNING AND 2 TABS IN THE EVENING lamotrigine 100 mg tablet 150 mg PO TID eszopiclone 3 mg tablet 3 mg PO QPM Discharge Orders: Discharge ED (Routine); Ordered 12/08/24 Ordered By: Ghada Jerry Referrals: Piedad Steinberg DO [Primary Care Provider] - Discharge Diet: Advance as tolerated Discharge Activity: Resume usual activity Patient Instructions: Urinary Tract Infection in Men (ED) Coding Level of Care Code ED Mushroom Laborer for Gustavo Vuong
[2024-12-08 11:13] VITALS: BP 125/83; PULSE 119; O2SAT 97
[2024-12-08 11:46] LABS: Bilirubin Urine Negative (Negative); Blood Urine 3+ (Negative); Glucose Urine UA 3+ (Normal); Ketones Urine 4+ (Negative); Leukocyte Esterase Urine Trace (Negative); Nitrate Urine Negative (Negative); Protein Urine 1+ (Negative); Urine Appearance Cloudy (CLEAR); pH Urine 5.5 (5-7)
[2024-12-08 11:51] LABS: Add Urine Microscopic? YES; Universal Test for UA Present (0)
[2024-12-08 12:15] LABS: RBC Urine >100 /hpf (0-2); Specific Gravity, Urine 1.047 (1.005-1.030); UA Manual Slide Review YES; Urine Color Orange (Yellow)
[2024-12-08 12:16] LABS: Bacteria Urine 1+ /hpf; Squamous Epithelial Cell Urine 0-4 /hpf (0-5); WBC Urine 15-25 /hpf (0-5)
[2024-12-08 12:17] LABS: Add Urine Culture? Yes
[2024-12-08 12:32] LABS: Basophils # 0.1 10^3/uL (0.0-0.1); Basophils % 0.5 %; Eosinophils % 0.1 %; Hematocrit 49.8 % (37-53); Lymphocytes # 1.4 10^3/uL (0.8-4.8); Lymphocytes % 11.1 %; Mean Corpuscular HGB Conc 32.7 g/dL (30-55); Mean Corpuscular Hemoglobin 29.5 pg (27-33); Mean Corpuscular Volume 90.2 fl (82-101); Mean Platelet Volume 9.7 fL (7.4-10.4); Monocytes # 1.2 10^3/uL (0.2-0.9); Monocytes % 9.4 %; Neutrophils # 9.63 10^3/uL (1.8-7.7); Neutrophils % 78.2 %; Nucleated Red Blood Cells % 0 %; Platelet Count 279 10^3/cmm (157-399); Red Blood Count 5.52 10^6/uL (3.85-5.65); Red Cell Distribution Width 14.1 % (12.1-15.1); White Blood Count 12.29 10^3/uL (3.29-11.43)
[2024-12-08 12:52] LABS: Alanine Aminotransferase 17 U/L (0-41); Albumin Level 3.8 g/dL (3.5-5.2); Alkaline Phosphatase 84 U/L (40-130); Anion Gap 19.3 (5-19); Aspartate Amino Transferase 12 U/L (0-40); Blood Urea Nitrogen 21 mg/dL (8-23); Calcium 10.6 mg/dL (8.5-10.5); Carbon Dioxide 24 mmol/L (22-29); Chloride 102 mmol/L (98-107); Creatinine Clr Calc Pharmacy 86.9388; Globulin 2.9 g/dL (1.3-4.6); Glucose 170 mg/dL (65-115); Osmolality Calculated 299 mOsm/kg (285-295); Potassium 4.3 mmol/L (3.5-5.1); Sodium 141 mmol/L (136-145); Total Bilirubin 0.5 mg/dL (0.15-1.2); Total Protein 6.7 g/dL (6.6-8.7)
[2024-12-08] MEDS: nitrofurantoin SR (BID) 100 mg Capsule PO (13:13)
[2024-12-08 13:15] VITALS: BP 139/81; PULSE 117; O2SAT 96
--- NOTE | 2024-12-08 16:42 | PC.NURSE ---
patient will not tolerate being hooked onto monitor. will try to reassess vitals at another time.
[2024-12-08 18:23] VITALS: BP 158/80; PULSE 93; O2SAT 98
[2024-12-08 18:24] VITALS: BP 158/80; PULSE 93; O2SAT 98
== END 2024-12-08 18:25 | disposition home or self-care (01) ==
PROVIDERS: Emergency Provider Emergency Medicine; PCP Family Medicine
DX: N30.00 Acute cystitis without hematuria (principal); Z79.84 Long term (current) use of oral hypoglycemic drugs; Z87.891 Personal history of nicotine dependence; E11.9 Type 2 diabetes mellitus without complications
CPT/HCPCS: 36415; 80053; 81001; 85025; 87077; 87086; 87186; 93005; 99284